=== PATIENT | female | born 1965 | race Caucasian/White ===

== ENCOUNTER 2019-02-10 16:25 | Emergency (ER) | payer MEDICAID, OTHER ==
[~2019-02-10] VITALS: Ht 167.6 cm; Wt 134.7 kg
[2019-02-10 16:54] LABS: Basophils # (auto) 0.1 uL; Basophils % (auto) 0.8 % (0.0-2.0); Eosinophils # (auto) 0.1 uL; Eosinophils % (auto) 1.1 % (0.0-7.0); Hemoglobin 14.4 g/dL (12.2-16.2); Lymphocytes # (auto) 2.1 uL; Lymphocytes % (auto) 22.4 % (10.0-50.0); Mean Corpuscular Hemoglobin 29.5 pg (28.0-32.0); Mean Corpuscular Hgb Conc. 33.5 g/dL (32.0-36.0); Monocytes # (auto) 0.4 uL; Monocytes % (auto) 4.4 % (0.0-12.0); Neutrophils # (auto) 6.7 uL; Neutrophils % (auto) 71.3 % (37.0-80.0); Platelet Count (auto) 297 10^3/uL (140-450); Red Blood Cells 4.89 10^6/uL (4.0-5.20); Red Cell Distribution Width 14.1 % (11.8-14.3); White Blood Cell 9.3 10^3/uL (4.4-10.8)
[2019-02-10 17:05] LABS: Albumin 3.5 g/dL (3.4-5.0); BUN/Creatinine Ratio 13.7; Calcium 8.9 mg/dL (8.5-10.1); Potassium 3.5 mmol/L (3.5-5.1)
[2019-02-10 17:08] LABS: Bilirubin, Total 0.4 mg/dL (0.2-1.0); Total Protein 7.3 g/dL (6.4-8.2)
[2019-02-10] MEDS ORDERED: cloNIDine HCL 0.1 MG TAB PO ONE (17:15)
[2019-02-10 17:57] VITALS: BP 183/81
[2019-02-10] MEDS ORDERED: FUROSEMIDE 40 MG TAB PO ONE (18:30)
[2019-02-10 18:47] LABS: Urine Bacteria NONE SEEN /hpf (None Seen); Urine Blood Negative /uL (Negative); Urine Specific Gravity 1.008 (1.001-1.035); Urine WBC <1 /hpf (0 - 5)
== END 2019-02-10 18:49 | disposition home or self-care (01) ==
LOC: ER 16:30
DX: M25.475 Effusion, left foot (principal); N39.0 Urinary tract infection, site not specified; I11.0 Hypertensive heart disease with heart failure; I50.9 Heart failure, unspecified; Z88.0 Allergy status to penicillin
CPT/HCPCS: 36415; 80053; 81001; 83880; 84484; 85025; 93971

== ENCOUNTER 2024-04-22 18:31 | Emergency (ER) | payer MEDICARE, MEDICAID ==
[~2024-04-22] VITALS: Ht 167.6 cm; Wt 145.5 kg
[2024-04-22 20:19] VITALS: TEMP 98.2; O2SAT 96
[2024-04-22] MEDS: MORPHINE SULFATE INJ 2 MG/ml SYRG IM ONE (20:27)
--- NOTE | 2024-04-22 20:51 | DVH ---
CLINICAL INDICATION: fall/pain TECHNIQUE: 3 radiographic views of the pelvis and left hip were obtained. Comparison: None FINDINGS/IMPRESSION: There is no evidence of acute fracture or dislocation. Mild degenerative changes bilateral hips with moderate to severe degenerative changes of the lower ernst mbar spine. The alignment is anatomical. Phleboliths are noted within the pelvis.
[2024-04-22 20:57] VITALS: BP 127/51; PULSE 65; RESP 18
--- NOTE | 2024-04-22 21:06 | ED.PDOC ---
Back pain HPI HPI Comments This is a 59-year-old female presents to the ED via ambulance chief complaint left hip pain. Patient states on 04/20/2024 she was taken in the trash barrel lost her footing and most of her weight fell onto her left side. Since has been complaining of left groin pain into the hip, denies as achy and sharp in nature 8/10 on pain scale. She states spends half her time in the wheelchair and walking she does note some pain with weight-bearing. She denies numbness, weakness, neck pain, back pain, headache, head trauma CT of the LOC, fever or chills. 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 Family History Family History: Reviewed,noncontributory to illness Social History Smoker: Non-Smoker Alcohol: Denies ETOH Use Drugs: Denies Drug Use Lives In: Home Constitutional: denies: chills, diaphoresis, fatigue, fever, malaise, sweats, weakness, others EENTM: denies: blurred vision, double vision, ear bleeding, ear discharge, ear drainage, ear pain, ear ringing, eye pain, eye redness, hearing loss, mouth pain, mouth swelling, nasal discharge, nose bleeding, nose congestion, nose p ain, photophobia, tearing, throat pain, throat swelling, voice changes, others Respiratory: denies: cough, hemoptysis, orthopnea, SOB at rest, shortness of breath, SOB with excertion, stridor, wheezing, others Cardiovascular: denies: chest pain, dizzy spells, diaphoresis, Dyspnea on exertion, edema, irregular heart beat, left arm pain, lightheadedness, palpitations, PND, syncope, others Gastrointestinal: denies: abdomen distended, abdominal pain, blood streaked bowels, constipated, diarrhea, dysphagia, difficulty swallowing, hematemesis, melena, nausea, poor appetite, poor fluid intake, rectal bleeding, rectal pain, vomiting, others Genitourinary: denies: abnormal vagina bleeding, burning, dyspareunia, dysuria, flank pain, frequency, hematuria, incontinence, pain, , vagina discharge, urgency, others Neurological: denies: dizziness, fainting, headache, left sided numbness, left sided weakness, numbness, paresthesia, pre-existing deficit, right sided numbness, right sided weakness, seizure, speech problems, tingling, tremors, weakness, others Musculoskeletal: reports: others (Left hip pain); denies: back pain, gout, joint pain, joint swelling, muscle pain, muscle stiffness, neck pain Integumetry: denies: bruises, change in color, change in hair/nails, dryness, laceration, lesions, lumps, rash, wounds, others Allergic/Immunocompromised: denies: Difficulty Healing, Frequent Infections, Hives, Itching, others Hematologic/Lymphatic: denies: anemia, blood clots, easy bleeding, easy bruising, swollen glands, others Endocrine: denies: excessive hunger, excessive sweating, excessive thirst, excessive urination, flushing, intolerance to cold, intolerance to heat, unexplained weight gain, unexplained weight loss, others Psychiatric: denies: anxiety, bipolar disorder, depression, hopeless, panic disorder, schizophrenia, sleepless, suicidal, others Physical Exam General Appearance: No Apparent Distress, Normal HEENT: Pharynx Normal Neck: Full Range of Motion, Non-Tender Respiratory: Lungs Clear, No Respiratory Distress, Normal Breath Sounds Cardiovascular: No Edema, No JVD, No Murmur, No Gallop, Normal Peripheral Pulses, Regular Rate/Rhythm Breast Exam: Deferred Gastrointestinal: No Organomegaly, Non Tender, No Pulsatile Mass, Normal Bowel Sounds, Soft Genitalia: Deferred Pelvic: Deferred Rectal: Deferred Extremities: Normal capillary refill, Normal inspection, Normal range of motion, Non-tender, No pedal edema Musculoskeletal : Location: Left Extremity Location: Hip (In his on palpation lateral left hip. Full range of motion with moderate discomfort no noted crepitus. Noted ecchymosis ab rasions lesions or lacerations sensory and motion intact to left leg positive pedal pulse. 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 Was a procedure done?: No Back Pain Differential Dx Differential Diagnosis: Fracture, Musculoskeletal Pain X-Ray, Labs, Meds, VS Vital Signs Date Time Temp Pulse Resp B/P (MAP) Pulse Ox O2 Delivery O2 Flow Rate FiO2 04/22/24 20:57 65 18 127/51 04/22/24 20:27 66 19 128/60 04/22/24 20:19 66 19 96 Room Air 04/22/24 20:19 98.2 66 19 128/60 (82) 96 98.2 04/22/24 18:54 98.0 64 18 133/75 (94) 98 Current Medications Medications (Trade) Dose Ordered Sig/Francisco Route Start Time Stop Time Status Last Admin Morphine Sulfate 1 mg ONCE ONCE IM 04/22/24 19:45 04/22/24 19:46 DC 04/22/24 20:27 X-Ray, Labs, Meds, VS Comment Left hip x-ray negative for acute findings or osseous lesions noted moderate to severe hip arthritis and severe lumbar spine arthritis. Patient reports improvement in pain is requesting discharge at this time. Follow up with PCP in 2-3 days as necessary if symptoms persist consider repeat x-ray or MRI consider physical therapy. Return precautions given. Tylenol or Motrin as needed for the pain per labeled dosing instructions. Patient agrees with discharge plan of care. Time of 1ST Reevaluation: 21:06 Reevaluation 1ST: Improved Patient Education/Counseling: Diagnosis, Treatment, Prognosis, Need For Follow Up Family Education/Counseling: Diagnosis, Treatment, Prognosis, Need For Follow Up Departure 1 Departure Time of Disposition: 21:06 Impression: Primary Impression: Hip pain, left Disposition: 01 HOME / SELF CARE / HOMELESS Condition: Stable Discharged With: Friend Critical Care Note Critical Care Time?: No Stability Stability form required: MEDHAT Pryor Apr 22, 2024 21:06
== END 2024-04-22 21:11 | disposition home or self-care (01) ==
LOC: EDUNIT# 18:31 → ER 18:31 → EDBD 18:31 → ER 21:10
DX: M25.552 Pain in left hip (principal); I10 Essential (primary) hypertension; Z88.0 Allergy status to penicillin; Z98.890 Other specified postprocedural states
CPT/HCPCS: 73502; 96372; 99283; J2270

== ENCOUNTER 2025-01-11 20:41 | Emergency (ER) | payer OTHER, MEDICAID ==
[~2025-01-11] VITALS: Ht 170.2 cm; Wt 136.1 kg
[2025-01-11 23:45] VITALS: BP 111/57; PULSE 84; RESP 20; O2SAT 98
[2025-01-11] MEDS: ACETAMINOPHEN 325 MG TAB PO ONE (23:54)
[2025-01-11] MEDS: TETANUS-DIPTH-ACEL PERTUSSIS 0.5ML SYR Tdap IM ONE (23:55)
--- NOTE | 2025-01-12 | ED.PDOC ---
History of Present Illness(SKN HPI Comments 59 year old female presents to ER for wound check. Patient states she has been experiencing pain, redness and swelling to left lower leg x 3 days with associated chills x 1 day s/p being bitten by her cat 3 days ago and presents to ER for wound check. Denies use of medications for current symptoms and states she is unsure when her last tetanus shot was. 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 Family History Family History: Unknown Social History Smoker: Non-Smoker Alcohol: Denies ETOH Use Drugs: Denies Drug Use Lives In: Home Constitutional: denies: chills, diaphoresis, fatigue, fever, malaise, sweats, weakness, others EENTM: denies: blurred vision, double vision, ear bleeding, ear discharge, ear drainage, ear pain, ear ringing, eye pain, eye redness, hearing loss, mouth pain, mouth swelling, nasal discharge, nose bleeding, nose congestion, nose pain, photophobia, tearing, throat pain, throat swelling, voice changes, others Respiratory: denies: cough, hemoptysis, orthopnea, SOB at rest, shortness of breath, SOB with excertion, stridor, wheezing, others Cardiovascular: denies: chest pain, dizzy spells, diaphoresis, Dyspnea on exertion, edema, irregular heart beat, left arm pain, lightheadedness, palpitations, PND, syncope, others Gastrointestinal: denies: abdomen distended, abdominal pain, blood streaked bowels, constipated, diarrhea, dysphagia, difficulty swallowing, hematemesis, melena, nausea, poor appetite, poor fluid intake, rectal bleeding, rectal pain, vomiting, others Genitourinary: denies: abnormal vagina bleeding, burning, dyspareunia, dysuria, flank pain, frequency, hematuria, incontinence, pain, , vagina discharge, urgency, others Neurological: denies: dizziness, fainting, headache, left sided numbness, left sided weakness, numbness, paresthesia, pre-existing deficit, right sided numbness, right sided weakness, seizure, speech problems, tingling, tremors, weakness, others Musculoskeletal: denies: back pain, gout, joint pain, joint swelling, muscle pain, muscle stiffness, neck pain, others Integumetry: reports: others (As stated in HPI) Allergic/Immunocompromised: denies: Difficulty Healing, Frequent Infections, Hives, Itching, others Hematologic/Lymphatic: denies: anemia, blood clots, easy bleeding, easy bruising, swollen glands, others Endocrine: denies: excessive hunger, excessive sweating, excessive thirst, excessive urination, flushing, intolerance to cold, intolerance to heat, unexplained weight gain, unexplained weight loss, others Psychiatric: denies: anxiety, bipolar disorder, depression, hopeless, panic disorder, schizophrenia, sleepless, suicidal, others Physical Exam General Appearance: No Apparent Distress HEENT: PERRL/EOMI Neck: Full Range of Motion, Non-Tender, Normal Respiratory: Chest Non-Tender, Lungs Clear, No Accessory Muscle Use, No Respiratory Distress, Normal Breath Sounds Cardiovascular: No Murmur, No Gallop, Regular Rate/Rhythm Breast Exam: Deferred Gastrointestinal: NOT DONE Genitalia: Deferred Pelvic: Deferred Rectal: Deferred Extremities: No calf tenderness, Normal capillary refill, Normal range of motion Neurologic: Alert, resident care director II-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 Was a procedure done?: No Sedation Sedation?: No Images 1 - Moderate erythema, increased warmth, +induration and moderate swelling noted to left lower leg surrounding 2 small puncture wounds consistent with cat bite. No red streaking, drainage or FB noted. Pulses intact Differential Diagnosis (INTG) Differential Diagnosis: Abrasion Differential Diagnosis: Abscess Differential Diagnosis: Neurovascular Injury Differential Diagnosis: Retained Foreign Body, Other (Lymphangitis, sepsis, cat scratch disease) X-Ray, Labs, Meds, VS Vital Signs Date Time Temp Pulse Resp B/P (MAP) Pulse Ox O2 Delivery O2 Flow Rate FiO2 01/12/25 00:40 99.2 01/11/25 23:54 100.1 01/11/25 23:45 100.1 84 20 111/57 (75) 98 100.1 01/11/25 23:40 Room Air* 0 21 01/11/25 20:48 91 91 153/97 95 Current Medications Medications (Trade) Dose Ordered Sig/Francisco Route Start Time Stop Time Status Last Admin Ceftriaxone Sodium 50 ml @ 100 mls/hr ONCE ONCE IV 01/11/25 23:45 01/12/25 00:14 DC 01/12/25 00:09 Metronidazole 100 ml @ 100 mls/hr ONCE ONCE IV 01/11/25 23:45 01/12/25 00:44 DC 01/12/25 00:24 Diphtheria/ Tetanus/Acell Pertussis (Boostrix T-Dap) 0.5 ml ONCE ONCE IM 01/11/25 23:45 01/11/25 23:46 DC 01/11/25 23:55 Acetaminophen (Tylenol Tablet) 650 mg ONCE ONCE PO 01/11/25 23:45 01/11/25 23:46 DC 01/11/25 23:54 Hep-Lock IV ordered Metronidazole 500 mg IV ordered Rocephin 1 g IV ordered Tylenol 650 mg p.o. ordered Patient refused further workup in ER and admission to this hospital and states she would like to sign out against medical advice. Several attempts were made to convince patient to stay for further evaluation/treatment and need for admission to the hospital for cellulitis of left lower leg without success Risks of signing out AMA were discussed with patient in full details. Including risk of partial/permanent disability, risk of limb loss, risk of sepsis and risk of discussed. Patient alert and oriented x4 verbalized full understanding of signing out AMA Patient signed out of ER against medical advice Time of 1ST Reevaluation: 23:54 Reevaluation 1ST: N/A Patient Education/Counseling: Diagnosis, Treatment, Prognosis, Need For Follow Up Family Education/Counseling: No Family Present SEPSIS Sepsis Screen Date sepsis recognized/suspect: Jan 11, 2025 Time Sepsis recognized/suspect: 2051 Recent Procedure: No On Antibiotic Therapy: No Respiratory Rate >20: No Heart Rate >90: Yes Temp<36 C (96.8 F) or >38.3 C: No SBP <90 or MAP <65 mmHG: No New Acute Mental Status Change: No Is the patient on CPAP, BIPAP,: No Physician Orders Heplock Iv (9/17/25 ) Vital Signs Date Time Temp Pulse Resp B/P (MAP) Pulse Ox O2 Delivery O2 Flow Rate FiO2 01/12/25 00:40 99.2 01/11/25 23:54 100.1 01/11/25 23:45 100.1 84 20 111/57 (75) 98 100.1 01/11/25 23:40 Room Air* 0 21 01/11/25 20:48 91 91 153/97 95 Medications Medications Dose Ordered Sig/Francisco Route Start Time Stop Time Status Last Admin Dose Admin Acetaminophen 650 mg ONCE ONCE PO 01/11/25 23:45 01/11/25 23:46 DC 01/11/25 23:54 Ceftriaxone Sodium 50 ml @ 100 mls/hr ONCE ONCE IV 01/11/25 23:45 01/12/25 00:14 DC 01/12/25 00:09 Diphtheria/ Tetanus/Acell Pertussis 0.5 ml ONCE ONCE IM 01/11/25 23:45 01/11/25 23:46 DC 01/11/25 23:55 Metronidazole 100 ml @ 100 mls/hr ONCE ONCE IV 01/11/25 23:45 01/12/25 00:44 DC 01/12/25 00:24 Departure 1 Departure Time of Disposition: 01:15 Impression: Primary Impression: Cellulitis of left lower extremity Additional Impression: Cat bite of left lower leg with infection Qualified Codes: S81.852A - Open bite, left lower leg, initial encounter; L08.9 - Local infection of the skin and subcutaneous tissue, unspecified; W55.01XA - Bitten by cat, initial encounter Disposition: LEFT AGAINST MEDICAL ADVICE Condition: Serious Critical Care Note Critical Care Time?: No Stability Stability form required: No Heart Score Heart Score: Heart Score Response (Comments) Value History N/A 0 EKG N/A 0 Age N/A 0 Risk Factors N/A 0 Troponin N/A 0 Total 0 CHRIS MENDEZ Jan 12, 2025 00:00
[2025-01-12 00:40] VITALS: TEMP 99.2
[2025-01-21] MEDS ORDERED: LISI20TA56 PO (04:53)
== END 2025-01-12 | disposition left against medical advice (07) ==
LOC: ER 20:41
DX: S81.852A Open bite, left lower leg, initial encounter (principal); L03.116 Cellulitis of left lower limb; I10 Essential (primary) hypertension; Z85.850 Personal history of malignant neoplasm of thyroid; Z88.0 Allergy status to penicillin; Z90.89 Acquired absence of other organs; W55.01XA Bitten by cat, initial encounter; Y93.89 Activity, other specified; Y92.89 Other specified places as the place of occurrence of the external cause; Y99.8 Other external cause status
CPT/HCPCS: 90471; 90715; 96365; 96368; 99284; J0696; J3490

== ENCOUNTER 2025-01-12 13:16 | Emergency (ER) | payer MEDICAID, OTHER ==
[~2025-01-12] VITALS: Ht 170.2 cm; Wt 136.3 kg
[2025-01-12 13:19] VITALS: BP 113/48; PULSE 84; RESP 18; TEMP 99.5; O2SAT 93
--- NOTE | 2025-01-12 13:48 | ED.PDOC ---
History of Present Illness(SKN HPI Comments This is a 60 year old female presenting to the ED with chief complaint of cellulitis. Patient reports that she was bit by a cat she was feeding outside on Thursday on her left leg, but she started to develop redness, swelling, and warmth surrounding the bite deon on her leg recently. Patient relays that she was seen in [facility] yesterday for the same complaint and was going to be admitted, however, she eloped due to not wanting to be admitted. Patient notes she received one dose of Rocephin yesterday. Patient denies any numbness, fever, chills, drainage, or bleeding. Chief Complaint: Cellulitis Time Seen by MD: 13:44 Primary Care Provider: DR VERONICA History of Present Illness: Nurses Notes, Medications, Allergies Allergies: Coded Allergies: Penicillins (Verified Allergy, Unknown, 02/10/19) Information Source: Patient Mode of Arrival: Wheelchair Severity: Severe Timing: Days Duration: Since onset Prehospital treatment: None Location: Leg Mechanism: Cat Occurence: Outdoors Object: None Condition of Object: None Retained Foreign Body: No Wound Type: Puncture Immunization Status of Animal: Unknown Tetanus: Unknown History of: None Associated Signs and Symptoms: Redness, Swelling Past Medical History PAST MEDICAL HISTORY: Cancer, HTN Surgical History: 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 Family History Family History: Unknown Social History Smoker: Non-Smoker Alcohol: Denies ETOH Use Drugs: Denies Drug Use Lives In: Home Constitutional: denies: chills, diaphoresis, fatigue, fever, malaise, sweats, weakness, others EENTM: denies: blurred vision, double vision, ear bleeding, ear discharge, ear drainage, ear pain, ear ringing, eye pain, eye redness, hearing loss, mouth pain, mouth swelling, nasal discharge, nose bleeding, nose congestion, nose pain, photophobia, tearing, throat pain, throat swelling, voice changes, others Respiratory: denies: cough, hemoptysis, orthopnea, SOB at rest, shortness of breath, SOB with excertion, stridor, wheezing, others Cardiovascular: reports: edema; denies: chest pain, dizzy spells, diaphoresis, Dyspnea on exertion, irregular heart beat, left arm pain, lightheadedness, palpitations, PND, syncope, others Gastrointestinal: denies: abdomen distended, abdominal pain, blood streaked bowels, constipated, diarrhea, dysphagia, difficulty swallowing, hematemesis, melena, nausea, poor appetite, poor fluid intake, rectal bleeding, rectal pain, vomiting, others Genitourinary: denies: abnormal vagina bleeding, burning, dyspareunia, dysuria, flank pain, frequency, hematuria, incontinence, pain, , vagina discharge, urgency, others Neurological: denies: dizziness, fainting, headache, left sided numbness, left sided weakness, numbness, paresthesia, pre-existing deficit, right sided numbness, right sided weakness, seizure, speech problems, tingling, tremors, weakness, others Musculoskeletal: denies: back pain, gout, joint pain, joint swelling, muscle pain, muscle stiffness, neck pain, others Integumetry: reports: wounds (Left leg wound); denies: bruises, change in color, change in hair/nails, dryness, laceration, lesions, lumps, rash, others Allergic/Immunocompromised: denies: Difficulty Healing, Frequent Infections, Hives, Itching, others Hematologic/Lymphatic: denies: anemia, blood clots, easy bleeding, easy br uising, swollen glands, others Endocrine: denies: excessive hunger, excessive sweating, excessive thirst, excessive urination, flushing, intolerance to cold, intolerance to heat, unexplained weight gain, unexplained weight loss, others Psychiatric: denies: anxiety, bipolar disorder, depression, hopeless, panic disorder, schizophrenia, sleepless, suicidal, others All Other Systems: Reviewed and Negative Physical Exam General Appearance: No Apparent Distress, Normal HEENT: Normal ENT Inspection, Pharynx Normal, TMs Normal Neck: Full Range of Motion, Non-Tender, Normal, Normal Inspection Respiratory: Chest Non-Tender, Lungs Clear, No Accessory Muscle Use, No Respiratory Distress, Normal Breath Sounds Cardiovascular: No Edema, No JVD, No Murmur, No Gallop, Normal Peripheral Pulses, Regular Rate/Rhythm Breast Exam: Deferred Gastrointestinal: No Organomegaly, Non Tender, No Pulsatile Mass, Normal Bowel Sounds, Soft Genitalia: Deferred Pelvic: Deferred Rectal: Deferred Extremities: No calf tenderness, None (left leg warmth, erythma, tenderness and small ulceration.), Normal capillary refill, Normal inspection, Normal range of motion, Non-tender, No pedal edema, Other (2+ pitting edema to bilateral lower extremities. 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 Was a procedure done?: No Differential Diagnosis (INTG) Differential Diagnosis: Cellulitis X-Ray, Labs, Meds, VS Vital Signs Date Time Temp Pulse Resp B/P (MAP) Pulse Ox O2 Delivery O2 Flow Rate FiO2 01/12/25 13:19 99.5 84 18 113/48 93 99.5 Lab Test 01/12/25 16:09 01/12/25 14:13 Range/Units Lactic Acid Level Pending 2.6 *H 0.4-2.0 mmol/L White Blood Count 32.0 *H 4.4-10.8 10^3/uL Red Blood Count 4.25 4.0-5.20 10^6/uL Hemoglobin 11.7 L 12.2-16.2 g/dL Hematocrit 34.7 L 36.0-46.0 % Mean Corpuscular Volume 81.7 80.0-100.0 fL Mean Corpuscular Hemoglobin 27.5 L 28.0-32.0 pg Mean Corpuscular Hemoglobin Concent 33.7 32.0-36.0 g/dL Red Cell Distribution Width 14.7 H 11.8-14.3 % Platelet Count 286 140-450 10^3/uL Mean Platelet Volume 7.7 6.9-10.8 fL Neutrophils (%) (Auto) 37.0-80.0 % Lymphocytes (%) (Auto) 10.0-50.0 % Monocytes (%) (Auto) 0.0-12.0 % Basophils (%) (Auto) 0.0-2.0 % Neutrophils # (Auto) 1.6-8.6 10 ^3/uL Lymphocytes # (Auto) 0.4-5.4 10 ^3/uL Monocytes # (Auto) 0-1.3 10 ^3/uL Differential Total Cells Counted 100.0 100 Neutrophils % (Manual) 90 H 37.0-80.0 Band Neutrophils % (Manual) 3 Lymphocytes % (Manual) 3 L 10.0-50.0 Monocytes % (Manual) 4 0-12 Eosinophils % (Manual) 0 0-7 Basophils % (Manual) 0 0.0-2.0 Metamyelocytes % (manual) 0 Myelocytes % (Manual) 0 Promyelocytes % (Manual) 0 Blast Cells % (Manual) 0 Reactive Lymphocytes 0 Platelet Estimate Adequate Red Blood Cell Morphology Normal Sodium Level 127 L 136-145 mmol/L Potassium Level 3.7 3.5-5.1 mmol/L Chloride Level 92 L 98-107 mmol/L Carbon Dioxide Level 21 20-31 mmol/L Anion Gap 14 5-15 Blood Urea Nitrogen 18 9-23 mg/dL Creatinine 1.53 H 0.550-1.02 mg/dL Glomerular Filtration Rate Calc 38 >90 mL/min BUN/Creatinine Ratio 11.8 10.0-20.0 Serum Glucose 97 74-106 mg/dL Calcium Level 8.6 L 8.7-10.4 mg/dL Current Medications Medications (Trade) Dose Ordered Sig/Francisco Route Start Time Stop Time Status Last Admin Vancomycin HCl 250 ml @ 250 mls/hr ONCE ONCE IV 01/12/25 13:45 01/12/25 14:44 DC 01/12/25 14:47 Sodium Chloride 1,000 ml @ 1,000 mls/hr Q1H ONCE IV 01/12/25 14:45 01/12/25 15:44 DC 01/12/25 15:58 Time of 1ST Reevaluation: 14:41 Reevaluation 1ST: Unchanged Patient Education/Counseling: Diagnosis, Treatment Family Education/Counseling: No Family Present SEPSIS Sepsis Screen Date sepsis recognized/suspect: Jan 12, 2025 Time Sepsis recognized/suspect: 1322 Recent Procedure: No On Antibiotic Therapy: No Respiratory Rate >20: No Heart Rate >90: No Temp<36 C (96.8 F) or >38.3 C: No SBP <90 or MAP <65 mmHG: No New Acute Mental Status Change: No Is the patient on CPAP, BIPAP,: No Physician Orders Urinalysis (01/12/25 13:41) Blood Culture (01/12/25 13:41) Vital Signs Date Time Temp Pulse Resp B/P (MAP) Pulse Ox O2 Delivery O2 Flow Rate FiO2 01/12/25 13:19 99.5 84 18 113/48 93 99.5 Laboratory Tests Test 01/12/25 14:13 01/12/25 16:09 Lactic Acid Level 2.6 mmol/L (0.4-2.0) *H Pending White Blood Count 32.0 10^3/uL (4.4-10.8) *H Medications Medications Dose Ordered Sig/Francisco Route Start Time Stop Time Status Last Admin Dose Admin Sodium Chloride 1,000 ml @ 1,000 mls/hr Q1H ONCE IV 01/12/25 14:45 01/12/25 15:44 DC 01/12/25 15:58 Vancomycin HCl 250 ml @ 250 mls/hr ONCE ONCE IV 01/12/25 13:45 01/12/25 14:44 DC 01/12/25 14:47 Departure 1 Departure Time of Disposition: 16:59 (Patient with a worsening cellulitis after a cat bite. Empirically cover patient with antibiotics and we will admit patient for further workup) Impression: Primary Impression: Cat bite of left lower leg with infection Qualified Codes: S81.852A - Open bite, left lower leg, initial encounter; L08.9 - Local infection of the skin and subcutaneous tissue, unspecified; W55.01XA - Bitten by cat, initial encounter Additional Impression: Cellulitis of left lower extremity Disposition: ADMITTED INPATIENT Admit to: Med Surg Condition: Serious Critical Care Note Critical Care Time?: No Stability Stability form required: No Heart Score Heart Score: Heart Score Response (Comments) Value History N/A 0 EKG N/A 0 Age N/A 0 Risk Factors N/A 0 Troponin N/A 0 Total 0 I personally scribed for TOYIN MARTINEZ MD ([email or web address]) on 01/12/25 at 13:48. Electronically submitted by Jcarlos Brown ([email or web address]). TOYIN MARTINEZ MD Jan 12, 2025 13:48
[2025-01-12 14:23] LABS: Hematocrit 34.7 % (36.0-46.0); Hemoglobin 11.7 g/dL (12.2-16.2); Mean Corpuscular Hemoglobin 27.5 pg (28.0-32.0); Mean Corpuscular Volume 81.7 fL (80.0-100.0)
[2025-01-12 14:31] LABS: Potassium 3.7 mmol/L (3.5-5.1)
[2025-01-12 14:32] LABS: Anion Gap 14 (5-15); Carbon Dioxide 21 mmol/L (20-31); Chloride 92 mmol/L (98-107); Sodium 127 mmol/L (136-145)
[2025-01-12 14:35] LABS: Calcium 8.6 mg/dL (8.7-10.4)
[2025-01-12 14:37] LABS: BUN/Creatinine Ratio 11.8 (10.0-20.0); Blood Urea Nitrogen 18 mg/dL (9-23); Glucose 97 mg/dL (74-106)
[2025-01-12 14:43] LABS: Lactic Acid w/Reflex 2.6 mmol/L (0.4-2.0)
[2025-01-12] MEDS: VANCOMYCIN 1GM/250ML KIT 250 ML IV ONE (14:47)
[2025-01-12] MEDS: SODIUM CHLORIDE 0.9% 1,000 ML IV ONE (15:58)
[2025-01-12 16:03] LABS: Total Cells Counted 100.0 (100)
[2025-01-12 16:04] LABS: RBC Morphology Normal
[2025-01-12] MEDS: AMPICILLIN & SULBACTAM SODIUM 3 GM in SODIUM CHL 0.9% 100 ML IV SCH (19:37)
[2025-01-12] MEDS: diphenhdrAMINE HCL 50 MG/1 ML VL IV ONE (19:37)
[2025-01-21] MEDS ORDERED: LISI20TA56 PO (04:53)
== END 2025-01-12 19:56 | disposition home or self-care (01) ==
LOC: ER 13:20
DX: S81.852A Open bite, left lower leg, initial encounter (principal); L03.116 Cellulitis of left lower limb; I10 Essential (primary) hypertension; Z90.89 Acquired absence of other organs; Z88.0 Allergy status to penicillin; W55.01XA Bitten by cat, initial encounter; Y93.89 Activity, other specified; Y92.89 Other specified places as the place of occurrence of the external cause; Y99.8 Other external cause status
CPT/HCPCS: 36415; 80048; 83605; 85007; 85027; 87040; 96361; 96365; 96367; 96375; 99284; J1200; J3373; J7030

== ENCOUNTER 2025-01-20 18:42 | Inpatient (IN) | payer OTHER ==
[~2025-01-20] VITALS: Ht 167.6 cm; Wt 141.0 kg
--- NOTE | 2025-01-20 20:00 | DVH ---
CLINICAL HISTORY: LE swelling warmth redness TECHNIQUE: Color and duplex doppler imaging of the bilateral lower extremity veins was performed. Ves susan compression if possible was also performed. WID: COMPARISON: None FINDINGS: Right and left external iliac veins: Normal flow and phasicity. Right Lower Extremity: Right common femoral vein: Normal compressibility and flow. Right femoral vein: Normal compressibility and flow. Right popliteal vein: Normal compressibility and flow. Right posterior tibial vein is patent Left Lower Extremity: Left common femoral vein: Normal compressibility and flow. Left femoral vein: Normal compressibility and flow. Left popliteal vein: Normal compressibility and flow. The left calf veins are not visualized. Mild subcutaneous edema in the left calf. Enlarged reactive appearing left inguinal lymph node measuring 5 x 0.9 x 2.5 cm. IMPRESSION: 1. NO SONOGRAPHIC EVIDENCE FOR DEEP VENOUS THROMBOSIS IN THE BILATERAL LOWER EXTREMITY VEINS. The lef t posterior tibial vein is not visualized. 2. Mild subcutaneous edema in the left calf.
--- NOTE | 2025-01-20 20:57 | ED.PDOC ---
Musculoskeletal HPI Comments 60-year-old female came to ER for left lower extremity swelling. Patient was seen here last January 11 for cat bite on the left lower leg, patient was given shot of Rocephin and metronidazole, and was advised admission then but signed AMA. Patient came back on January 12 for similar complaint, was again advised admission but was never admitted. Patient coming in for worsening of left lower extremity swelling, with discharge and drainage. REVIEW OF SYSTEMS: General: No fever, no chills, or fatigue HEENT: No sore throat, no earache, no congestion, no neck pain. Cardiac: No chest pain. No palpitations. Lungs: No shortness of breath, no cough. GI: No nausea, no vomiting, no diarrhea, no constipation, no abdominal pain : No dysuria, frequency, or urgency. No hematuria. Musculoskeletal: No joint pain , (+) left lower extremity swelling, (+) extremity edema. Skin: No rash, no itching. Neuro: No headache, no dizziness, no weakness EXAM: General: Awake, alert and oriented. No acute distress. Skin: Skin in warm, dry and intact. Appropriate color for ethnicity. HEENT: The head is normocephalic and atraumatic. Conjunctivae are clear without exudates or hemorrhage. Sclera is non-icteric. EOM are intact. No signs of nystagmus. Eyelids are normal in appearance without swelling or lesions. Oral mucosa is pink and moist Neck: The neck is supple with normal range of motion. No JVD. Cardiac: Heart rate and rhythm are normal. No murmurs, gallops, or rubs are auscultated. Respiratory: No signs of respiratory distress. Lung sounds are clear in all lobes bilaterally without rales, rhonchi, or wheezes. Abdominal: Abdomen is soft, non-tender without distention. Bowel sounds are present and normoactive in all four quadrants. Extremities: Left lower extremity with a extensive erythema, warmth, tenderness. Neurological: The patient is awake, alert and oriented to person, place, and time with normal speech. Speech is clear. There is no facial asymmetry. Psychiatric: Appropriate mood and affect. 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 Allergies: Coded Allergies: Penicillins (Verified Allergy, Unknown, 02/10/19) Home Meds Reported Medications Potassium Chloride (POTASSIUM CHLORIDE CR) 10 Meq Tb, 20 MEQ PO DAILY, TAB 01/21/25 Furosemide (Furosemide) 20 Mg Tab, 20 MG PO DAILY for 30 Days, MG 01/21/25 Duloxetine HCl (Duloxetine HCl) 60 Mg Cap, 60 MG PO DAILY, CAP 01/21/25 Pregabalin (Lyrica) 200 Mg Cap, 2 CAP PO DAILY, #60 CAP 01/21/25 Lisinopril (Lisinopril) 20 Mg Tab, 20 MG PO DAILY for 30 Days, MG 01/21/25 Lisinopril (Lisinopril) 20 Mg Tab, 20 MG PO DAILY for 30 Days, MG 01/21/25 Verapamil Hcl (Verapamil Hcl Er) 180 Mg Tab, 180 MG PO, TAB 01/21/25 Metoprolol Succinate (Metoprolol Succinate Er) 50 Mg Tab, 50 MG PO DAILY for 30 Days, MG 01/21/25 Liothyronine Sodium (Liothyronine Sodium) 25 Mcg Tab, 25 MCG PO DAILY, TAB 01/21/25 Levothyroxine Sodium (Levothyroxine Sodium) 100 Mcg Tab, 100 MCG PO QAM for 30 Days, MCG 01/21/25 Information Source: Patient Mode of Arrival: Ambulatory Location: Left Extremity Location: Leg Timing: Hours Past Medical History PAST MEDICAL HISTORY: Cancer, HTN, Thyroid 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 Was a procedure done?: No Differential Diagnosis EXT Differential Diagnosis: Cellulitis, CHF, Deep Vein Thrombosis, Compartment Syndrome, Laceration, Septic, Other X-Ray, Labs, Meds, VS Vital Signs Date Time Temp Pulse Resp B/P (MAP) Pulse Ox O2 Delivery O2 Flow Rate FiO2 01/20/25 21:16 97.0 79 18 128/64 (85) 93 97.0 01/20/25 18:43 98.0 84 18 122/74 94 98.0 Lab Test 01/20/25 20:58 Range/Units White Blood Count 11.0 H 4.4-10.8 10^3/uL Red Blood Count 4.05 4.0-5.20 10^6/uL Hemoglobin 11.5 L 12.2-16.2 g/dL Hematocrit 33.3 L 36.0-46.0 % Mean Corpuscular Volume 82.2 80.0-100.0 fL Mean Corpuscular Hemoglobin 28.3 28.0-32.0 pg Mean Corpuscular Hemoglobin Concent 34.5 32.0-36.0 g/dL Red Cell Distribution Width 15.0 H 11.8-14.3 % Platelet Count 496 H 140-450 10^3/uL Mean Platelet Volume 8.0 6.9-10.8 fL Neutrophils (%) (Auto) 81.6 H 37.0-80.0 % Lymphocytes (%) (Auto) 11.2 10.0-50.0 % Monocytes (%) (Auto) 6.1 0.0-12.0 % Eosinophils (%) (Auto) 0.5 0.0-7.0 % Basophils (%) (Auto) 0.6 0.0-2.0 % Neutrophils # (Auto) 9.0 H 1.6-8.6 10 ^3/uL Lymphocytes # (Auto) 1.2 0.4-5.4 10 ^3/uL Monocytes # (Auto) 0.7 0-1.3 10 ^3/uL Eosinophils # (Auto) 0.1 0-0.8 10 ^3/uL Basophils # (Auto) 0.1 0-0.2 10 ^3/uL Nucleated Red Blood Cells 0.0 % Erythrocyte Sedimentation Rate 50 H 0-20 mm/hr Sodium Level 133 L 136-145 mmol/L Potassium Level 4.6 3.5-5.1 mmol/L Chloride Level 98 98-107 mmol/L Carbon Dioxide Level 26 20-31 mmol/L Anion Gap 9 5-15 Blood Urea Nitrogen 19 9-23 mg/dL Creatinine 1.23 H 0.550-1.02 mg/dL Glomerular Filtration Rate Calc 50 >90 mL/min BUN/Creatinine Ratio 15.4 10.0-20.0 Serum Glucose 99 74-106 mg/dL Calcium Level 9.1 8.7-10.4 mg/dL C-Reactive Protein High Sensitivity 7.77 H <1.0 mg/dL B-Type Natriuretic Peptide 132.76 0-100 pg/mL Microbiology Date/Time Source Procedure Growth Status 01/20/25 20:58 Blood Blood Culture - Preliminary NO GROWTH AFTER 24 HOURS OF INCUBATION. Resulted 01/20/25 20:47 Blood Blood Culture - Preliminary NO GROWTH AFTER 24 HOURS OF INCUBATION. Resulted Time of 1ST Reevaluation: 20:53 Reevaluation 1ST: Unchanged Patient Education/Counseling: Need For Follow Up Family Education/Counseling: No Family Present Departure 1 Departure Time of Disposition: 22:45 Impression: Primary Impression: Cellulitis of left lower extremity Disposition: ADMITTED INPATIENT Condition: Stable Comments 60-year-old female with cellulitis of left lower extremity Antibiotics initiated in the ED Patient admitted to hospitalist service for further treatment, evaluation and monitoring. Critical Care Note Critical Care Time?: No Stability Stability form required: No I personally scribed for WAYNE SANON MD ([email or web address]) on 01/20/25 at 20:57. Electronically submitted by Power [employer] ([email or web address]). WAYNE SANON MD Jan 20, 2025 20:57
[2025-01-20 21:21] LABS: Hematocrit 33.3 % (36.0-46.0); Hemoglobin 11.5 g/dL (12.2-16.2); Mean Corpuscular Hemoglobin 28.3 pg (28.0-32.0); Mean Corpuscular Volume 82.2 fL (80.0-100.0); Nucleated Red Blood Cells % 0.0 %
[2025-01-20 21:32] LABS: Potassium 4.6 mmol/L (3.5-5.1)
[2025-01-20 21:33] LABS: Anion Gap 9 (5-15); Carbon Dioxide 26 mmol/L (20-31)
[2025-01-20 21:34] LABS: Calcium 9.1 mg/dL (8.7-10.4)
[2025-01-20 21:39] LABS: BUN/Creatinine Ratio 15.4 (10.0-20.0); Blood Urea Nitrogen 19 mg/dL (9-23); Glucose 99 mg/dL (74-106)
[2025-01-20 21:43] LABS: Chloride 98 mmol/L (98-107); Sodium 133 mmol/L (136-145)
[2025-01-20] MEDS: VANCOMYCIN 1GM/250ML KIT 250 ML IV ONE (22:15)
[2025-01-20] MEDS ORDERED: DOCUSATE SOD 100 MG CAP PO PRN (23:45)
[2025-01-20] MEDS ORDERED: ACETAMINOPHEN 325 MG TAB PO PRN (23:45)
[2025-01-20] MEDS ORDERED: ONDANSETRON HCL 4 MG/2 ML VIAL IV PRN (23:45)
[2025-01-20] MEDS ORDERED: MORPHINE SULFATE INJ 2 MG/ml SYRG IV PRN ×2 (23:45)
[2025-01-20] MEDS ORDERED: NITROGLYCERIN 0.4 MG SL TAB SL PRN (23:45)
[2025-01-21] VITALS (12 sets, daily range): BP systolic 118–149; BP diastolic 59–89; PULSE 69–109; RESP 16–22; TEMP 96.6–98.1; O2SAT 93–100
[2025-01-21] MEDS ORDERED: VANCOMYCIN PER PHARMACY 0 MG IV SCH
[2025-01-21] MEDS: IPRATROPIUM BROM 0.5 MG/2.5ML INH SOL NEB PRN (00:16)
[2025-01-21] MEDS: SODIUM CHLORIDE 0.9% 1,000 ML IV SCH (00:16)
[2025-01-21] MEDS: ALBUTEROL SULF 2.5 MG/0.5ML(0.5%) NEB SOLN NEB PRN (00:17)
--- NOTE | 2025-01-21 00:26 | DVH ---
INDICATION: cellulitis with pain and swelling r/o abscess COMPARISON: None TECHNIQUE: CT of the left lower extremity was performed without contrast. Volume transverse images we re obtained and reconstructed in multiple planes using bone and soft tissue algorithms. Radiation Dose Information: CT Dose: CTDI volume is 9.95 mGy. Dose-length product is 547.63 mGy*cm. FINDINGS: Diffuse soft tissue edema throughout the left mccain, ankle, and foot. No discrete focal organized flui d collection No fracture or alignment. No erosive bone changes. IMPRESSION: Severe diffuse soft tissue edema below the knee. No focal fluid collections or erosive bone changes. All CT scans at this medical facility are performed using dose modulation techniques as appropriate t o a performed exam including the following: Automated exposure control was utilized; Adjustment of th e MA And/or KV according to patient size; And use of iterative reconstruction technique.
--- NOTE | 2025-01-21 02:20 | DVHHP2 ---
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 Patient states initial cat bite occurred about a month ago. She went to the emergency department 2 weeks later was treated with antibiotic injection. Also received tetanus vaccine at that point. Emergency department recommended inpatient admission however the patient decided to leave against medical advice at that time. At this point returns because redness and swelling has spread all the way up [id number]. Also endorses she is having difficulty walking with it. Also noticing skin peeling off the infected area on her leg. During the emergency department evaluation BMP Na 133, K4.6, BUN 19, creatinine 1.23, C-reactive protein 7.77. CBC: W11.0, H&H 11.5/33.3, PLT 496, ESR 50. Vascular ultrasound negative for DVT of the left lower extremity. At this time there are no complaints of fevers, chills, dizziness, syncope, shortness of breath, chest pain, palpitations, nausea, vomiting. Cardiovascular: HTN Pulmonary: COPD Endocrine: Hypothyroidism Smoke: No ALCOHOL: none Drugs: None Lives: with Family Review of Systems Constitutional: No: Fever, Chills, Sweats, Weakness, Malaise, Other Eyes: No: Pain, Vision change, Conjunctivae inflammation, Eyelid inflammation, Other, Redness ENT: No: Ear pain, Ear discharge, Nose pain, Nose discharge, Nose congestion, Mouth pain, Mouth swelling, Throat pain, Throat swelling, Other Respiratory: No: Cough, Dry, Shortness of breath, SOB with excertion, Wheezing, Hemoptysis, Pleuritic Pain, Sputum, Wheezing, Other Cardiovascular: No: Chest Pain, Palpitations, Orthopnea, Paroxysmal Noc. Dyspnea, Edema, Lt Headedness, Other Gastrointestinal: No: Nausea, Vomiting, Abdominal Pain, Diarrhea, Constipation, Melena, Hematochezia, Other Genitourinary: No Dysuria, No Frequency, No Incontinence, No Hematuria, No Retention, No Other Musculoskeletal: leg pain Skin: Rash, Lesions, Other Neurological: No: Weakness, Numbness, Incoordination, Change in speech, Confusion, Seizures, Other Allergies: Coded Allergies: Penicillins (Verified Allergy, Unknown, 02/10/19) Medications Current Medications Medications Dose Ordered Sig/Francisco Route Start Time Stop Time Status Last Admin Dose Admin Sodium Chloride 1,000 ml @ 75 mls/hr [id number] IV 01/20/25 23:45 01/21/25 13:04 Docusate Sodium 100 mg BIDPRN PRN PO 01/20/25 23:45 Acetaminophen 650 mg Q6HP PRN PO 01/20/25 23:45 Acetaminophen/ Hydrocodone Bitart 1 tab Q4HP PRN PO 01/20/25 23:45 Ondansetron HCl 4 mg Q4HP PRN IV 01/20/25 23:45 Morphine Sulfate 2 mg Q4HPRN PRN IV 01/20/25 23:45 Enoxaparin Sodium 40 mg DAILY SC 01/21/25 10:00 Nitroglycerin 0.4 mg Q5MINP PRN SL 01/20/25 23:45 Morphine Sulfate 2 mg Q30M PRN IV 01/20/25 23:45 Ceftriaxone Sodium 50 ml @ 100 mls/hr DAILY IV 01/21/25 10:00 Albuterol 2.5 mg Q4HPRN PRN NEB 01/20/25 23:45 01/21/25 00:17 2.5 MG Ipratropium Union 0.5 mg Q4HPRN PRN NEB 01/20/25 23:45 01/21/25 00:16 0.5 MG Vancomycin HCl 0 ml @ 0 mls/hr UD IV 01/21/25 00:00 UNV Clindamycin Phosphate 50 ml @ 50 mls/hr Q8HR IV 01/21/25 06:00 Levothyroxine Sodium 100 mcg QAM@0600 PO 01/21/25 06:00 UNV Pregabalin 100 mg BID PO 01/21/25 10:00 UNV Metoprolol Succinate 50 mg DAILY PO 01/21/25 10:00 UNV Exam Vital Signs Vital Signs Date Time Temp Pulse Resp B/P (MAP) Pulse Ox O2 Delivery O2 Flow Rate FiO2 01/21/25 01:52 98.3 70 18 126/53 (77) 97 98.3 01/21/25 00:24 0.0 General Appearance: Alert, Oriented X3, Cooperative, mild distress HEENT: Atraumatic, PERRLA, EOMI Respiratory: Other (Diffuse wheezing) Abdominal: Normal bowel sounds, Soft, No tenderness Extremities: No clubbing, Other (Bilateral lower extremities edematous left > right. Erythematous changes to left lower extremity with sloughing skin) Neuro: Normal gait (Ambulating using F WW at baseline), Normal speech, Strength at 5/5 X4 ext Psych/Mental Status: Mental status NL, Mood NL Labs/Xrays Labs Test 01/20/25 20:58 Range/Units White Blood Count 11.0 H 4.4-10.8 10^3/uL Red Blood Count 4.05 4.0-5.20 10^6/uL Hemoglobin 11.5 L 12.2-16.2 g/dL Hematocrit 33.3 L 36.0-46.0 % Mean Corpuscular Volume 82.2 80.0-100.0 fL Mean Corpuscular Hemoglobin 28.3 28.0-32.0 pg Mean Corpuscular Hemoglobin Concent 34.5 32.0-36.0 g/dL Red Cell Distribution Width 15.0 H 11.8-14.3 % Platelet Count 496 H 140-450 10^3/uL Mean Platelet Volume 8.0 6.9-10.8 fL Neutrophils (%) (Auto) 81.6 H 37.0-80.0 % Lymphocytes (%) (Auto) 11.2 10.0-50.0 % Monocytes (%) (Auto) 6.1 0.0-12.0 % Eosinophils (%) (Auto) 0.5 0.0-7.0 % Basophils (%) (Auto) 0.6 0.0-2.0 % Neutrophils # (Auto) 9.0 H 1.6-8.6 10 ^3/uL Lymphocytes # (Auto) 1.2 0.4-5.4 10 ^3/uL Monocytes # (Auto) 0.7 0-1.3 10 ^3/uL Eosinophils # (Auto) 0.1 0-0.8 10 ^3/uL Basophils # (Auto) 0.1 0-0.2 10 ^3/uL Nucleated Red Blood Cells 0.0 % Erythrocyte Sedimentation Rate 50 H 0-20 mm/hr Sodium Level 133 L 136-145 mmol/L Potassium Level 4.6 3.5-5.1 mmol/L Chloride Level 98 98-107 mmol/L Carbon Dioxide Level 26 20-31 mmol/L Anion Gap 9 5-15 Blood Urea Nitrogen 19 9-23 mg/dL Creatinine 1.23 H 0.550-1.02 mg/dL Glomerular Filtration Rate Calc 50 >90 mL/min BUN/Creatinine Ratio 15.4 10.0-20.0 Serum Glucose 99 74-106 mg/dL Calcium Level 9.1 8.7-10.4 mg/dL C-Reactive Protein High Sensitivity 7.77 H <1.0 mg/dL B-Type Natriuretic Peptide 132.76 0-100 pg/mL SEPSIS Sepsis Screen Date sepsis recognized/suspect: Jan 20, 2025 Time Sepsis recognized/suspect: 1842 Recent Procedure: No On Antibiotic Therapy: No Respiratory Rate >20: No Heart Rate >90: No Temp<36 C (96.8 F) or >38.3 C: No SBP <90 or MAP <65 mmHG: No New Acute Mental Status Change: No Is the patient on CPAP, BIPAP,: No Physician Orders Bilat Lower Dvt (01/20/25 19:07) Blood Culture (01/20/25 20:46) Wound Culture W/ Gs (01/20/25 20:46) Ct L Tib Fib Wo Contrast (01/20/25 23:22) Admit (01/20/25 23:35) Code Status (01/20/25 23:35) Vital Signs .PER UNIT PROTOCOL (01/20/25 23:35) Review Orders With Adm.Md (01/20/25 23:35) Encourage Activity As Tolerate (01/20/25 23:35) Consistent Carb(Ccho)Diabetes (01/21/25 Breakfast) Sodium Chloride 0.9% (01/20/25 23:45) Oxygen By Face Mask (01/20/25 23:35) Docusate Sodium Capsule (Colace Capsule) (01/20/25 23:45) Acetaminophen Tablet (Tylenol Tablet) (01/20/25 23:45) Notify Md Of Changes From Base (01/20/25 23:35) Advance Directive (01/20/25 23:35) Basic Metabolic Panel (01/21/25 05:00) Basic Metabolic Panel (01/22/25 05:00) Basic Metabolic Panel (01/23/25 05:00) Basic Metabolic Panel (01/24/25 05:00) Basic Metabolic Panel (01/25/25 05:00) Complete Blood Count (01/21/25 05:00) Complete Blood Count (01/22/25 05:00) Complete Blood Count (01/23/25 05:00) Complete Blood Count (01/24/25 05:00) Complete Blood Count (01/25/25 05:00) Patient Condition (01/20/25 23:35) Allergies (01/20/25 23:35) Hydrocodone-Acet 5/325mg Tab ([place] 5/32 (01/20/25 23:45) Ondansetron Hcl (Zofran) (01/20/25 23:45) Morphine Sulfate Injection (01/20/25 23:45) Enoxaparin Sodium (Lovenox) (01/21/25 10:00) Nitroglycerin Sublingual (Ntrostat Subli (01/20/25 23:45) Morphine Sulfate Injection (01/20/25 23:45) Stat Ekg For Chest Pain (01/20/25 23:35) Notify Md Of Changes From Base (01/20/25 23:35) Stock Clipper For 24 Hours (01/20/25 23:35) Emergency Dysrhythmia Protocol (01/20/25 23:35) Rhythm Strips Once Every Shift (01/20/25 23:35) Oxygen By Nasal Cannula (01/20/25 23:35) * Infectious [place]- Dr. Nicolás Sears (01/20/25 23:35) Ceftriaxone 1gm/50ml (Rocephin) (01/21/25 10:00) Albuterol Medneb (Ventolin Medneb) (01/20/25 23:45) Ipratropium Medneb (Atrovent Medneb) (01/20/25 23:45) Wound Culture W/ Gs (01/20/25 23:35) Vancomycin Per Pharmacy (01/21/25 00:00) * Wound Consult (01/20/25 ) Clindamycin 900mg Iv (Cleocin Iv) (01/21/25 06:00) Levothyroxine Tablet (Synthroid Tablet) (01/21/25 06:00) Pregabalin Capsule (Lyrica Capsule) (01/21/25 10:00) Metoprolol Xl Succinate (Toprol Xl) (01/21/25 10:00) Vital Signs Date Time Temp Pulse Resp B/P (MAP) Pulse Ox O2 Delivery O2 Flow Rate FiO2 01/21/25 01:52 98.3 70 18 126/53 (77) 97 98.3 01/21/25 00:24 79 22 128/64 96 0.0 01/20/25 21:16 97.0 79 18 128/64 (85) 93 97.0 01/20/25 18:43 98.0 84 18 122/74 94 98.0 Laboratory Tests Test 01/20/25 20:58 White Blood Count 11.0 10^3/uL (4.4-10.8) H Medications Medications Dose Ordered Sig/Francisco Route Start Time Stop Time Status Last Admin Dose Admin Albuterol 2.5 mg Q4HPRN PRN NEB 01/20/25 23:45 01/21/25 00:17 2.5 MG Ceftriaxone Sodium 50 ml @ 100 mls/hr ONCE ONCE IV 01/20/25 21:00 01/20/25 21:29 DC 01/20/25 21:42 100 MLS/HR Ipratropium Union 0.5 mg Q4HPRN PRN NEB 01/20/25 23:45 01/21/25 00:16 0.5 MG Vancomycin HCl 250 ml @ 250 mls/hr ONCE ONCE IV 01/20/25 21:00 01/20/25 21:59 DC 01/20/25 22:15 250 MLS/HR Assessment/Plan Assessment/Plan Left lower extremity cellulitis, secondary to cat bite Hypertension COPD not in exacerbation Plan Admit to telemetry Consult infectious disease. Wound culture/blood cultures pending. CT LLE r/o abscess formation Broad-spectrum IV ABX IVF Bronchodilators. As needed, supplemental O2 to maintain oxygen saturation greater than 92%. 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 23:35 Encourage Activity As [facility]IO 01/20/25 In Process Tolerate 23:35 Consistent DIET 01/21/25 Transmitted Carb(Ccho)Diabetes Breakfast Sodium Chloride 0.9% PHA 01/20/25 In Process 23:45 Oxygen By Face Mask RT 01/20/25 Transmitted 23:35 Docusate Sodium PHA 01/20/25 In Process Capsule (Colace 23:45 Acetaminophen Tablet PHA 01/20/25 In Process (Tylenol Tablet) 23:45 Notify Of Changes [facility] 01/20/25 In Process From Base 23:35 Advance Directive [facility]IO 01/20/25 In Process 23:35 Basic Metabolic Panel LAB 01/21/25 Logged 05:00 Basic Metabolic Panel LAB 01/22/25 Verified 05:00 Basic Metabolic Panel LAB 01/23/25 Verified 05:00 Basic Metabolic Panel LAB 01/24/25 Verified 05:00 Basic Metabolic Panel LAB 01/25/25 Verified 05:00 Complete Blood Count LAB 01/21/25 Logged 05:00 Complete Blood Count LAB 01/22/25 Verified 05:00 Complete Blood Count LAB 01/23/25 Verified 05:00 Complete Blood Count LAB 01/24/25 Verified 05:00 Complete Blood Count LAB 01/25/25 Verified 05:00 Patient Condition ORDERS 01/20/25 Transmitted 23:35 Allergies [facility]IO 01/20/25 In Process 23:35 Hydrocodone-Acet PHA 01/20/25 In Process 5/325mg Tab ([place] 23:45 Ondansetron Hcl PHA 01/20/25 In Process (Zofran) 23:45 Morphine Sulfate PHA 01/20/25 In Process Injection 23:45 Enoxaparin Sodium PHA 01/21/25 In Process (Lovenox) 10:00 Nitroglycerin PHA 01/20/25 In Process Sublingual (Ntrostat 23:45 Morphine Sulfate PHA 01/20/25 In Process Injection 23:45 Stat Ekg For Chest [facility] 01/20/25 In Process Pain 23:35 Notify Of Changes [facility] 01/20/25 In Process From Base 23:35 Stock Clipper For [facility] 01/20/25 In Process 24 Hours 23:35 Emergency Dysrhythmia [facility]IO 01/20/25 In Process Protocol 23:35 Rhythm Strips Once [facility] 01/20/25 In Process Every Shift 23:35 Oxygen By Nasal RT 01/20/25 Transmitted Cannula 23:35 * Infectious [place]- CONS 01/20/25 Transmitted Nicolás Sears 23:35 Ceftriaxone 1gm/50ml PHA 01/21/25 In Process (Rocephin) 10:00 Albuterol Medneb PHA 01/20/25 In Process (Ventolin Medneb) 23:45 Ipratropium Medneb PHA 01/20/25 In Process (Atrovent Medneb) 23:45 Wound Culture W/ Gs ZAHIRA 01/20/25 Logged 23:35 Vancomycin Per PHA 01/21/25 Pending Pharmacy 00:00 * Wound Consult CONS 01/20/25 Transmitted Clindamycin 900mg Iv PHA 01/21/25 In Process (Cleocin Iv) 06:00 Levothyroxine Tablet PHA 01/21/25 Logged (Synthroid Tablet) 06:00 Pregabalin Capsule PHA 01/21/25 Logged (Lyrica Capsule) 10:00 Metoprolol Xl PHA 01/21/25 Logged Succinate (Toprol Xl) 10:00 Date of Service: Jan 21, 2025 Billing Provider: RUI ADDISON MD Common Visit Codes: NOT BILLABLE RUI ADDISON MD 01/21/25 1349: Review of Systems Allergies: Coded Allergies: Penicillins (Verified Allergy, Unknown, 02/10/19) Additional Comments Additional Comments Additional Comments 60-year-old female with a known history of COPD, hypertension, hypothyroidism, who initially presented to the hospital with a left lower extremity worsening cellulitis after cat bite which happened about two three weeks ago. Patient was previously seen in the ER on January 11 and but left against medical advice. 1. Left lower extremity cat bite cellulitis 2. Mild leukocytosis 3. COPD 4. Hypothyroidism 5. Hypertension 6. Anxiety disorder 7. Morbid obesity classIII -broad-spectrum IV antibiotics, infectious disease consultation. NICA DINH NP Jan 21, 2025 02:20 RUI ADDISON MD Jan 21, 2025 13:49
[2025-01-21] MEDS ORDERED: LIOT25TA19 PO (04:53)
[2025-01-21] MEDS ORDERED: POTA-36 PO (04:53)
[2025-01-21] MEDS ORDERED: LEVO100T8 PO (04:53)
[2025-01-21] MEDS ORDERED: PREG200C19 PO (04:53)
[2025-01-21] MEDS ORDERED: METO-289 PO (04:53)
[2025-01-21] MEDS ORDERED: DULO1CAP6 PO (04:53)
[2025-01-21] MEDS ORDERED: FURO20TA3 PO (04:53)
[2025-01-21] MEDS ORDERED: LISI20TA56 PO ×2 (04:53)
[2025-01-21] MEDS ORDERED: VERA180T60 PO (04:53)
[2025-01-21] MEDS: LEVOTHYROXINE SODIUM 100 MCG TAB PO SCH (05:43)
[2025-01-21] MEDS: CLINDAMYCIN 900MG IV 50 ML IV SCH (05:44)
[2025-01-21 07:10] LABS: Hematocrit 33.5 % (36.0-46.0); Hemoglobin 11.1 g/dL (12.2-16.2); Mean Corpuscular Hemoglobin 27.2 pg (28.0-32.0); Mean Corpuscular Volume 82.2 fL (80.0-100.0); Nucleated Red Blood Cells % 0.0 %
[2025-01-21 07:23] LABS: Anion Gap 9 (5-15); Carbon Dioxide 26 mmol/L (20-31); Chloride 99 mmol/L (98-107); Potassium 3.9 mmol/L (3.5-5.1)
[2025-01-21 07:25] LABS: Calcium 8.9 mg/dL (8.7-10.4)
[2025-01-21 07:29] LABS: BUN/Creatinine Ratio 17.0 (10.0-20.0); Blood Urea Nitrogen 18 mg/dL (9-23); Glucose 99 mg/dL (74-106)
[2025-01-21 07:30] LABS: Sodium 134 mmol/L (136-145)
[2025-01-21] MEDS: ENOXAPARIN SOD 40 MG/0.4 ML SYRINGE SC SCH (10:38)
[2025-01-21] MEDS: METOPROLOL SUCCINATE XL 50 MG TAB PO SCH (10:39)
[2025-01-21] MEDS: PREGABALIN 25 MG CAP PO SCH (10:39)
[2025-01-21] MEDS: VANCOMYCIN 500mg/100mL 100 ML IV SCH (11:00)
[2025-01-21] MEDS: HYDROcodone-ACET 5/325MG TAB PO PRN (23:40)
[2025-01-22] VITALS (13 sets, daily range): BP systolic 116–146; BP diastolic 55–80; PULSE 66–87; RESP 16–20; TEMP 97.8–98.6; O2SAT 94–100
[2025-01-22 06:38] LABS: Hematocrit 30.3 % (36.0-46.0); Hemoglobin 10.3 g/dL (12.2-16.2); Mean Corpuscular Hemoglobin 28.0 pg (28.0-32.0); Mean Corpuscular Volume 82.0 fL (80.0-100.0); Nucleated Red Blood Cells % 0.0 %
[2025-01-22 06:41] LABS: Anion Gap 8 (5-15); Carbon Dioxide 27 mmol/L (20-31); Chloride 100 mmol/L (98-107); Potassium 3.6 mmol/L (3.5-5.1)
[2025-01-22 06:47] LABS: BUN/Creatinine Ratio 16.1 (10.0-20.0); Blood Urea Nitrogen 14 mg/dL (9-23); Glucose 96 mg/dL (74-106)
[2025-01-22 07:05] LABS: Calcium 8.6 mg/dL (8.7-10.4); Sodium 135 mmol/L (136-145)
--- NOTE | 2025-01-22 16:08 | DVHPN2 ---
Subjective Patient's left leg cellulitis improved significantly. Changes from previous H/P or p: No Changes Eyes: No Pain, No Vision change, No Conjunctivae inflammation, No Eyelid inflammation, No Other, No Redness ENT: No Ear pain, No Ear discharge, No Nose pain, No Nose discharge, No Nose congestion, No Mouth pain, No Mouth swelling, No Throat pain, No Throat swelling, No Other Cardiovascular: No Chest Pain, No Palpitations, No Orthopnea, No Paroxysmal Noc. Dyspnea, No Edema, No Lt Headedness, No Other Respiratory: No Cough, No Dry, No Shortness of breath, No SOB with excertion, No Wheezing, No Hemoptysis, No Pleuritic Pain, No Sputum, No Other Gastrointestinal: No Nausea, No Vomiting, No Abdominal Pain, No Diarrhea, No Constipation, No Melena, No Hematochezia, No Other Genitourinary: No Dysuria, No Frequency, No Incontinence, No Hematuria, No Retention, No Other Musculoskeletal: leg pain Skin: Rash, Lesions, Other Objective Vitals Vital Signs Date Time Temp Pulse Resp B/P (MAP) Pulse Ox O2 Delivery O2 Flow Rate FiO2 01/22/25 15:35 75 18 100 01/22/25 15:29 Room Air* 0 21 01/22/25 12:37 97.9 125/79 (94) 97.9 Intake/Output Intake and Output 01/22/25 07:00 Intake Total 1990 ml Output Total 900 ml Balance 1090 ml Intake Oral 1990 ml Output Urine Total 900 ml # Voids 2 Exam HEENT pupils are reactive Neck is supple CV is S1-S2 regular rate and rhythm Respiratory diminished breath sounds bases GI positive bowel sound Extremity trace edema of the left leg as well as positive redness and cellulitis. METHODS ANALYST DATA PROCESSING no motor deficit Medications Current Medications Medications Dose Ordered Sig/Francisco Route Start Time Stop Time Status Last Admin Dose Admin Docusate Sodium 100 mg BIDPRN PRN PO 01/20/25 23:45 Acetaminophen 650 mg Q6HP PRN PO 01/20/25 23:45 Acetaminophen/ Hydrocodone Bitart 1 tab Q4HP PRN PO 01/20/25 23:45 01/21/25 23:40 1 TAB Ondansetron HCl 4 mg Q4HP PRN IV 01/20/25 23:45 Morphine Sulfate 2 mg Q4HPRN PRN IV 01/20/25 23:45 Enoxaparin Sodium 40 mg DAILY SC 01/21/25 10:00 01/22/25 08:48 40 MG Nitroglycerin 0.4 mg Q5MINP PRN SL 01/20/25 23:45 Morphine Sulfate 2 mg Q30M PRN IV 01/20/25 23:45 Ceftriaxone Sodium 50 ml @ 100 mls/hr DAILY@0900 IV 01/21/25 09:00 01/22/25 08:47 100 MLS/HR Albuterol 2.5 mg Q4HPRN PRN NEB 01/20/25 23:45 01/22/25 15:29 2.5 MG Ipratropium [place] 0.5 mg Q4HPRN PRN NEB 01/20/25 23:45 01/22/25 15:29 0.5 MG Vancomycin HCl 0 ml @ 0 mls/hr UD IV 01/21/25 00:00 Clindamycin Phosphate 50 ml @ 50 mls/hr Q8HR IV 01/21/25 06:00 01/22/25 05:13 50 MLS/HR Levothyroxine Sodium 100 mcg QAM@0600 PO 01/21/25 06:00 01/22/25 05:15 100 MCG Pregabalin 100 mg BID PO 01/21/25 10:00 01/22/25 08:48 100 MG Metoprolol Succinate 50 mg DAILY PO 01/21/25 10:00 01/22/25 08:48 50 MG Vancomycin HCl 100 ml @ 200 mls/hr Q12H IV 01/21/25 11:00 01/22/25 11:00 200 MLS/HR Laboratory Results Laboratory Tests 01/22/25 05:30 Chemistry Test 01/22/25 05:30 Calcium Level 8.6 mg/dL (8.7-10.4) L Microbiology Microbiology Date/Time Source Procedure Growth Status 01/20/25 20:58 Blood Blood Culture - Preliminary NO GROWTH AFTER 24 HOURS OF INCUBATION. Resulted Assessment/Plan Assessment/Plan 60-year-old female with a known history of COPD, hypertension, hypothyroidism, who initially presented to the hospital with a left lower extremity worsening cellulitis after cat bite which happened about two three weeks ago. Patient was previously seen in the ER on January 11 and but left against medical advice. 1. Left lower extremity cat bite cellulitis 2. Mild leukocytosis 3. COPD 4. Hypothyroidism 5. Hypertension 6. Anxiety disorder 7. Morbid obesity classIII -broad-spectrum IV antibiotics, infectious disease consultation, discharge plan in next 24-48 hours. Plan discussed with: Patient, Son Date of Service: Jan 22, 2025 Billing Provider: RUI ADDISON MD Common Visit Codes: NOT BILLABLE RUI ADDISON MD Jan 22, 2025 16:08
--- NOTE | 2025-01-22 18:22 | DVHINCON2 ---
Family History: Asthma G8 MOTHER Colon cancer G8 FATHER Allergies: Coded Allergies: Penicillins (Verified Allergy, Unknown, 02/10/19) Home Meds Reported Medications Potassium Chloride (POTASSIUM CHLORIDE CR) 10 Meq Tb, 20 MEQ PO DAILY, TAB 01/21/25 Furosemide (Furosemide) 20 Mg Tab, 20 MG PO DAILY for 30 Days, MG 01/21/25 Duloxetine HCl (Duloxetine HCl) 60 Mg Cap, 60 MG PO DAILY, CAP 01/21/25 Pregabalin (Lyrica) 200 Mg Cap, 2 CAP PO DAILY, #60 CAP 01/21/25 Lisinopril (Lisinopril) 20 Mg Tab, 20 MG PO DAILY for 30 Days, MG 01/21/25 Lisinopril (Lisinopril) 20 Mg Tab, 20 MG PO DAILY for 30 Days, MG 01/21/25 Verapamil Hcl (Verapamil Hcl Er) 180 Mg Tab, 180 MG PO, TAB 01/21/25 Metoprolol Succinate (Metoprolol Succinate Er) 50 Mg Tab, 50 MG PO DAILY for 30 Days, MG 01/21/25 Liothyronine Sodium (Liothyronine Sodium) 25 Mcg Tab, 25 MCG PO DAILY, TAB 01/21/25 Levothyroxine Sodium (Levothyroxine Sodium) 100 Mcg Tab, 100 MCG PO QAM for 30 Days, MCG 01/21/25 Current Medications Current Medications Medications (Trade) Dose Ordered Sig/Francisco Route PRN Reason Start Time Stop Time Status Last Admin Vancomycin HCl 250 ml @ 200 mls/hr Q12H IV 01/22/25 23:00 Vital Signs Vital Signs Date Time Temp Pulse Resp B/P (MAP) Pulse Ox O2 Delivery O2 Flow Rate FiO2 01/22/25 17:00 97.8 83 20 127/58 (81) 94 97.8 01/22/25 15:29 Room Air* 0 21 Labs/Diagnostic Data Labs Test 01/22/25 10:29 01/22/25 05:30 01/21/25 06:06 01/20/25 20:58 Range/Units Vancomycin Level Trough 9.2 5-10 ug/mL White Blood Count 7.3 4.4-10.8 10^3/uL Red Blood Count 3.69 L 4.0-5.20 10^6/uL Hemoglobin 10.3 L 12.2-16.2 g/dL Hematocrit 30.3 L 36.0-46.0 % Mean Corpuscular Volume 82.0 80.0-100.0 fL Mean Corpuscular Hemoglobin 28.0 28.0-32.0 pg Mean Corpuscular Hemoglobin Concent 34.2 32.0-36.0 g/dL Red Cell Distribution Width 14.7 H 11.8-14.3 % Platelet Count 409 140-450 10^3/uL Mean Platelet Volume 7.9 6.9-10.8 fL Neutrophils (%) (Auto) 75.6 37.0-80.0 % Lymphocytes (%) (Auto) 15.2 10.0-50.0 % Monocytes (%) (Auto) 7.3 0.0-12.0 % Eosinophils (%) (Auto) 1.0 0.0-7.0 % Basophils (%) (Auto) 0.9 0.0-2.0 % Neutrophils # (Auto) 5.5 1.6-8.6 10 ^3/uL Lymphocytes # (Auto) 1.1 0.4-5.4 10 ^3/uL Monocytes # (Auto) 0.5 0-1.3 10 ^3/uL Eosinophils # (Auto) 0.1 0-0.8 10 ^3/uL Basophils # (Auto) 0.1 0-0.2 10 ^3/uL Nucleated Red Blood Cells 0.0 % Sodium Level 135 L 136-145 mmol/L Potassium Level 3.6 3.5-5.1 mmol/L Chloride Level 100 98-107 mmol/L Carbon Dioxide Level 27 20-31 mmol/L Anion Gap 8 5-15 Blood Urea Nitrogen 14 9-23 mg/dL Creatinine 0.87 0.550-1.02 mg/dL Glomerular Filtration Rate Calc 75 >90 mL/min BUN/Creatinine Ratio 16.1 10.0-20.0 Serum Glucose 96 74-106 mg/dL Calcium Level 8.6 L 8.7-10.4 mg/dL Erythrocyte Sedimentation Rate 50 H 0-20 mm/hr C-Reactive Protein High Sensitivity 7.77 H <1.0 mg/dL B-Type Natriuretic Peptide 132.76 0-100 pg/mL Microbiology Date/Time Source Procedure Growth Status 01/20/25 20:58 Blood Blood Culture - Preliminary NO GROWTH AFTER 24 HOURS OF INCUBATION. JOHN Quevedo MD Jan 22, 2025 18:22
--- NOTE | 2025-01-22 18:23 | DVHPN2 ---
Consult Progress Note Objective vital signs Vital Sign Date Time Temp Pulse Resp B/P (MAP) Pulse Ox O2 Delivery O2 Flow Rate FiO2 01/22/25 17:00 97.8 83 20 127/58 (81) 94 97.8 01/22/25 15:29 Room Air* 0 21 Total Intake and Output 01/21/25 01/21/25 01/22/25 15:00 23:00 07:00 Intake Total 1040 ml 950 ml Output Total 900 ml Balance 1040 ml 50 ml medications Current Medications Medications Dose Ordered Sig/Francisco Route Start Time Stop Time Status Last Admin Dose Admin Docusate Sodium 100 mg BIDPRN PRN PO 01/20/25 23:45 Acetaminophen 650 mg Q6HP PRN PO 01/20/25 23:45 Acetaminophen/ Hydrocodone Bitart 1 tab Q4HP PRN PO 01/20/25 23:45 01/21/25 23:40 1 TAB Ondansetron HCl 4 mg Q4HP PRN IV 01/20/25 23:45 Morphine Sulfate 2 mg Q4HPRN PRN IV 01/20/25 23:45 Enoxaparin Sodium 40 mg DAILY SC 01/21/25 10:00 01/22/25 08:48 40 MG Nitroglycerin 0.4 mg Q5MINP PRN SL 01/20/25 23:45 Morphine Sulfate 2 mg Q30M PRN IV 01/20/25 23:45 Ceftriaxone Sodium 50 ml @ 100 mls/hr DAILY@0900 IV 01/21/25 09:00 01/22/25 08:47 100 MLS/HR Albuterol 2.5 mg Q4HPRN PRN NEB 01/20/25 23:45 01/22/25 15:29 2.5 MG Ipratropium [place] 0.5 mg Q4HPRN PRN NEB 01/20/25 23:45 01/22/25 15:29 0.5 MG Vancomycin HCl 0 ml @ 0 mls/hr UD IV 01/21/25 00:00 Clindamycin Phosphate 50 ml @ 50 mls/hr Q8HR IV 01/21/25 06:00 01/22/25 17:01 50 MLS/HR Levothyroxine Sodium 100 mcg QAM@0600 PO 01/21/25 06:00 01/22/25 05:15 100 MCG Pregabalin 100 mg BID PO 01/21/25 10:00 01/22/25 08:48 100 MG Metoprolol Succinate 50 mg DAILY PO 01/21/25 10:00 01/22/25 08:48 50 MG Vancomycin HCl 250 ml @ 200 mls/hr Q12H IV 01/22/25 23:00 laboratory and microbiology Laboratory Tests 01/22/25 05:30 Test 01/22/25 05:30 Range/Units Serum Glucose 96 74-106 mg/dL Dietary Evaluation Review Recommendations by RD: Dietary education by RD Comments: 1) Initiate MVI @ 1 tb qd 2) Initiate vitamin C @ 500 mg bid and zinc sulfate @ 220 mg qd for 7 days 3) Refer to outpatient RD for weight management 4) Follow-up with cardiology and pulmonology 5) Continue to monitor I&O, labs, and skin integrity Expected Outcomes/Goals: 1) appetite and labs to improve 2) wound to improve 3) gradual wt loss 4) f/u in 3-5 days JOHN LYNN MD Jan 22, 2025 18:23
[2025-01-22] MEDS: VANCOMYCIN 1.25GM/250ML 250 ML IV SCH (23:05)
[2025-01-23] VITALS (12 sets, daily range): BP systolic 119–146; BP diastolic 68–73; PULSE 67–81; RESP 16–20; TEMP 97.6–98.5; O2SAT 93–100
[2025-01-23 06:40] LABS: Hematocrit 30.1 % (36.0-46.0); Hemoglobin 10.4 g/dL (12.2-16.2); Mean Corpuscular Hemoglobin 28.2 pg (28.0-32.0); Mean Corpuscular Volume 81.7 fL (80.0-100.0); Nucleated Red Blood Cells % 0.0 %
[2025-01-23 06:41] LABS: Anion Gap 8 (5-15); Carbon Dioxide 27 mmol/L (20-31); Potassium 3.6 mmol/L (3.5-5.1)
[2025-01-23 06:46] LABS: Calcium 8.6 mg/dL (8.7-10.4); Chloride 98 mmol/L (98-107); Sodium 133 mmol/L (136-145)
[2025-01-23 06:47] LABS: BUN/Creatinine Ratio 11.8 (10.0-20.0); Blood Urea Nitrogen 11 mg/dL (9-23); Glucose 92 mg/dL (74-106)
[2025-01-23 10:29] LABS: Hepatitis B Surface Antigen Negative (Negative); Hepatitis C Antibody Negative (Negative)
--- NOTE | 2025-01-23 15:52 | DVHPN2 ---
Subjective Patient's left leg cellulitis improved significantly. Changes from previous H/P or p: No Changes Eyes: No Pain, No Vision change, No Conjunctivae inflammation, No Eyelid inflammation, No Other, No Redness ENT: No Ear pain, No Ear discharge, No Nose pain, No Nose discharge, No Nose congestion, No Mouth pain, No Mouth swelling, No Throat pain, No Throat swelling, No Other Cardiovascular: No Chest Pain, No Palpitations, No Orthopnea, No Paroxysmal Noc. Dyspnea, No Edema, No Lt Headedness, No Other Respiratory: No Cough, No Dry, No Shortness of breath, No SOB with excertion, No Wheezing, No Hemoptysis, No Pleuritic Pain, No Sputum, No Other Gastrointestinal: No Nausea, No Vomiting, No Abdominal Pain, No Diarrhea, No Constipation, No Melena, No Hematochezia, No Other Genitourinary: No Dysuria, No Frequency, No Incontinence, No Hematuria, No Retention, No Other Musculoskeletal: leg pain Skin: Rash, Lesions, Other Objective Vitals Vital Signs Date Time Temp Pulse Resp B/P (MAP) Pulse Ox O2 Delivery O2 Flow Rate FiO2 01/23/25 12:53 97.6 69 20 142/73 (96) 94 97.6 01/23/25 10:15 Room Air* 0 21 Intake/Output Intake and Output 01/23/25 07:00 Intake Total 2430 ml Balance 2430 ml Intake Oral 2080 ml IV Total 350 ml # Voids 8 # Bowel Movements 1 Exam HEENT pupils are reactive Neck is supple CV is S1-S2 regular rate and rhythm Respiratory diminished breath sounds bases GI positive bowel sound Extremity trace edema of the left leg as well as positive redness and cellulitis. [employer] no motor deficit Medications Current Medications Medications Dose Ordered Sig/Francisco Route Start Time Stop Time Status Last Admin Dose Admin Docusate Sodium 100 mg BIDPRN PRN PO 01/20/25 23:45 Acetaminophen 650 mg Q6HP PRN PO 01/20/25 23:45 Acetaminophen/ Hydrocodone Bitart 1 tab Q4HP PRN PO 01/20/25 23:45 01/23/25 06:19 1 TAB Ondansetron HCl 4 mg Q4HP PRN IV 01/20/25 23:45 Morphine Sulfate 2 mg Q4HPRN PRN IV 01/20/25 23:45 Enoxaparin Sodium 40 mg DAILY SC 01/21/25 10:00 01/23/25 08:46 40 MG Nitroglycerin 0.4 mg Q5MINP PRN SL 01/20/25 23:45 Morphine Sulfate 2 mg Q30M PRN IV 01/20/25 23:45 Ceftriaxone Sodium 50 ml @ 100 mls/hr DAILY@0900 IV 01/21/25 09:00 01/23/25 08:47 100 MLS/HR Albuterol 2.5 mg Q4HPRN PRN NEB 01/20/25 23:45 01/22/25 15:29 2.5 MG Ipratropium [place] 0.5 mg Q4HPRN PRN NEB 01/20/25 23:45 01/22/25 15:29 0.5 MG Vancomycin HCl 0 ml @ 0 mls/hr UD IV 01/21/25 00:00 Clindamycin Phosphate 50 ml @ 50 mls/hr Q8HR IV 01/21/25 06:00 01/23/25 15:12 50 MLS/HR Levothyroxine Sodium 100 mcg QAM@0600 PO 01/21/25 06:00 01/23/25 05:49 100 MCG Pregabalin 100 mg BID PO 01/21/25 10:00 01/23/25 08:46 100 MG Metoprolol Succinate 50 mg DAILY PO 01/21/25 10:00 01/23/25 08:46 50 MG Vancomycin HCl 250 ml @ 200 mls/hr Q12H IV 01/22/25 23:00 01/23/25 11:28 200 MLS/HR Laboratory Results Laboratory Tests 01/23/25 05:12 Chemistry Test 01/23/25 05:12 Calcium Level 8.6 mg/dL (8.7-10.4) L Microbiology Microbiology Date/Time Source Procedure Growth Status 01/22/25 17:11 Leg Left Gram Stain - Final Resulted 01/22/25 17:11 Leg Left Wound Culture - Preliminary Resulted 01/20/25 20:58 Blood Blood Culture - Preliminary NO GROWTH AFTER 48 HOURS OF INCUBATION. Resulted Assessment/Plan Assessment/Plan 60-year-old female with a known history of COPD, hypertension, hypothyroidism, who initially presented to the hospital with a left lower extremity worsening cellulitis after cat bite which happened about two three weeks ago. Patient was previously seen in the ER on January 11 and but left against medical advice. 1. Left lower extremity cat bite cellulitis 2. Mild leukocytosis 3. COPD 4. Hypothyroidism 5. Hypertension 6. Anxiety disorder 7. Morbid obesity classIII -broad-spectrum IV antibiotics, infectious disease consultation, discharge plan in next 24-48 hours. Plan discussed with: Patient Date of Service: Jan 23, 2025 Billing Provider: RUI ADDISON MD Common Visit Codes: NOT BILLABLE RUI ADDISON MD Jan 23, 2025 15:52
--- NOTE | 2025-01-23 16:09 | MEDREC ---
REPLACED BY [facility] Intervention Section I REPLACED BY [facility] Intervention: IV to PO conversion (Please consider clindamycin IV => PO) [facility] RESIDENT Jan 23, 2025 16:09
--- NOTE | 2025-01-23 16:35 | DVHPNRES ---
Progress Note Date Seen: Jan 23, 2025 Resident Creating Document: ALVIN BATES RESIDENT Has the PT tested + for MRSA If YES, has PT been informed?: No Medical Necessity Reason Pt with a Central, PICC or Fol: No Subjective Review of Systems This is a 60-year-old female with past medical history of hypertension, COPD, hypothyroidism, who presented to the ED with chief complaint of cellulitis of the left lower extremity after a cat bite. The patient states that she 1st came to the hospital on 01/11/25 but went against medical advice. At that time patient received IV vancomycin and after suggesting admission, patient went AMA. Patient presented to the ED four days back with significant left lower extremity cellulitis, erythema extending from the left ankle all the way just below the left knee. There is significant swelling compared to right lower extremity and painful to palpation. Patient did reported fever and chills three days after the cat bite which was approximately on 01/04/2025. Today, patient states that the erythema and swelling has been slightly improving compared to admission. Blood cultures came back negative and wound cultures are showing rare Gram-positive cocci young colonies. Patient is currently on vancomycin, ceftriaxone and clindamycin. ROS Constitutional: Denies weight loss, fever and chills. HEENT: Denies changes in vision and hearing. Respiratory: Denies shortness of breath and cough Cardiovascular: Denies chest discomfort or palpitations GI: Denies abdominal pain, nausea, vomiting and diarrhea. : Denies dysuria and urinary frequency. Musculoskeletal: Reports significant pain and swelling in the left lower extremity. Skin: Denies rash and pruritus. Neurological: Denies dizziness, headache, vision or hearing problems Objective vital signs Vital Sign Date Time Temp Pulse Resp B/P (MAP) Pulse Ox O2 Delivery O2 Flow Rate FiO2 01/23/25 12:53 97.6 69 20 142/73 (96) 94 97.6 01/23/25 10:15 Room Air* 0 21 Total Intake and Output 01/22/25 01/22/25 01/23/25 15:00 23:00 07:00 Intake Total 480 ml 800 ml 1150 ml Balance 480 ml 800 ml 1150 ml medications Current Medications Medications Dose Ordered Sig/Francisco Route Start Time Stop Time Status Last Admin Dose Admin Docusate Sodium 100 mg BIDPRN PRN PO 01/20/25 23:45 Acetaminophen 650 mg Q6HP PRN PO 01/20/25 23:45 Acetaminophen/ Hydrocodone Bitart 1 tab Q4HP PRN PO 01/20/25 23:45 01/23/25 06:19 1 TAB Ondansetron HCl 4 mg Q4HP PRN IV 01/20/25 23:45 Morphine Sulfate 2 mg Q4HPRN PRN IV 01/20/25 23:45 Enoxaparin Sodium 40 mg DAILY SC 01/21/25 10:00 01/23/25 08:46 40 MG Nitroglycerin 0.4 mg Q5MINP PRN SL 01/20/25 23:45 Morphine Sulfate 2 mg Q30M PRN IV 01/20/25 23:45 Ceftriaxone Sodium 50 ml @ 100 mls/hr DAILY@0900 IV 01/21/25 09:00 01/23/25 08:47 100 MLS/HR Albuterol 2.5 mg Q4HPRN PRN NEB 01/20/25 23:45 01/22/25 15:29 2.5 MG Ipratropium [place] 0.5 mg Q4HPRN PRN NEB 01/20/25 23:45 01/22/25 15:29 0.5 MG Vancomycin HCl 0 ml @ 0 mls/hr UD IV 01/21/25 00:00 Clindamycin Phosphate 50 ml @ 50 mls/hr Q8HR IV 01/21/25 06:00 01/23/25 15:12 50 MLS/HR Levothyroxine Sodium 100 mcg QAM@0600 PO 01/21/25 06:00 01/23/25 05:49 100 MCG Pregabalin 100 mg BID PO 01/21/25 10:00 01/23/25 08:46 100 MG Metoprolol Succinate 50 mg DAILY PO 01/21/25 10:00 01/23/25 08:46 50 MG Vancomycin HCl 250 ml @ 200 mls/hr Q12H IV 01/22/25 23:00 01/23/25 11:28 200 MLS/HR Examination Physical Examination General: Patient alert and oriented in person, place and time. Patient following commands. HEENT: Normocephalic, atraumatic, moist mucous membranes Respiratory/pulmonary: Clear lungs bilaterally, vesicular murmurs present in almost all lung albarran, no associated crackles or wheezes. Cardiovascular: Normal heart sounds S1 and S2 with no associated murmurs Abdomen: Abdomen nondistended, there is no pain to palpation in any of the abdominal quadrants, no palpable masses. Extremities: There is significant swelling and erythema extending from the left ankle all the way below the left knee. There is no open wound present in the left lower extremity at this time. Skin: No rashes or pruritus, there is no sacral edema present at this time. Neurological: Intact cranial nerves with no focal neurologic deficits laboratory and microbiology Laboratory Tests 01/23/25 05:12 Test 01/23/25 05:12 Range/Units Serum Glucose 92 74-106 mg/dL Microbiology Date/Time Source Procedure Growth Status 01/22/25 17:11 Leg Left Gram Stain - Final Resulted 01/22/25 17:11 Leg Left Wound Culture - Preliminary Resulted 01/20/25 20:58 Blood Blood Culture - Preliminary NO GROWTH AFTER 48 HOURS OF INCUBATION. Resulted Problem List/Assessment/Plan Problem List/Assessment/Plan Assessment/plan Acute left lower extremity cellulitis due to cat bite Primary hypertension COPD, stable Hypothyroidism Morbid obesity History of anxiety disorder Plan -Stop vancomycin -continue IV ceftriaxone -Continue clindamycin IV -Patient can be Discharged on PO clindamycin 500mg TID and Cefuroxime 500mg BID both for 14 days. -Continue rest of care per primary team Goals of care discussed with patient at bedside, full code Plan discussed with Dr. Sears Plan discussed with: Patient Dietary Evaluation Review Recommendations by RD: Dietary education by RD Comments: 1) Initiate MVI @ 1 tb qd 2) Initiate vitamin C @ 500 mg bid and zinc sulfate @ 220 mg qd for 7 days 3) Refer to outpatient RD for weight management 4) Follow-up with cardiology and pulmonology 5) Continue to monitor I&O, labs, and skin integrity Expected Outcomes/Goals: 1) appetite and labs to improve 2) wound to improve 3) gradual wt loss 4) f/u in 3-5 days ALVIN BATES RESIDENT Jan 23, 2025 16:35
[2025-01-23] MEDS: CLINDAMYCIN 900MG IV 50 ML IV SCH (21:11)
[2025-01-23] MEDS ORDERED: CLINDAMYCIN HCL 150 MG CAP PO SCH (22:00)
[2025-01-23] MEDS ORDERED: CEFUROXIME 250 MG TAB PO SCH (22:00)
[2025-01-24] VITALS (14 sets, daily range): BP systolic 134–162; BP diastolic 68–77; PULSE 62–92; RESP 14–18; TEMP 97.4–98.6; O2SAT 93–100
[2025-01-24 06:18] LABS: Hematocrit 29.7 % (36.0-46.0); Hemoglobin 10.4 g/dL (12.2-16.2); Mean Corpuscular Hemoglobin 28.7 pg (28.0-32.0); Mean Corpuscular Volume 82.4 fL (80.0-100.0); Nucleated Red Blood Cells % 0.0 %
[2025-01-24 06:33] LABS: Chloride 99 mmol/L (98-107); Potassium 3.8 mmol/L (3.5-5.1); Sodium 136 mmol/L (136-145)
[2025-01-24 06:34] LABS: Anion Gap 9 (5-15); Carbon Dioxide 28 mmol/L (20-31)
[2025-01-24 06:38] LABS: Calcium 8.4 mg/dL (8.7-10.4)
[2025-01-24 06:39] LABS: BUN/Creatinine Ratio 10.7 (10.0-20.0); Blood Urea Nitrogen 9 mg/dL (9-23); Glucose 90 mg/dL (74-106)
--- NOTE | 2025-01-24 14:22 | DVHPNRES ---
Progress Note Date Seen: Jan 24, 2025 Resident Creating Document: ALVIN BATES RESIDENT Has the PT tested + for MRSA If YES, has PT been informed?: No Medical Necessity Reason Pt with a Central, PICC or Fol: No Subjective Review of Systems This is a 60-year-old female with past medical history of hypertension, COPD, hypothyroidism, who presented to the ED with chief complaint of cellulitis of the left lower extremity after a cat bite. The patient states that she 1st came to the hospital on 01/11/25 but went against medical advice. At that time patient received IV vancomycin and after suggesting admission, patient went AMA. Patient presented to the ED four days back with significant left lower extremity cellulitis, erythema extending from the left ankle all the way just below the left knee. There is significant swelling compared to right lower extremity and painful to palpation. Patient did reported fever and chills three days after the cat bite which was approximately on 01/04/2025. Today, patient states that the erythema and swelling has been slightly improving compared to admission. Blood cultures came back negative and wound cultures are showing rare Gram-positive cocci young colonies. Patient seen and examined at bedside. Yesterday we discontinues vancomycin and kept the patient on clindamycin and ceftriaxone IV. Patient states that the swelling and erythema is slightly improving compare to admission. Patient denies fever, chills or any other complains at this time. Patient can be DC on cefuroxime 500mg BID and clindamycin 500mg TID for 14 days. ROS Constitutional: Denies weight loss, fever and chills. HEENT: Denies changes in vision and hearing. Respiratory: Denies shortness of breath and cough Cardiovascular: Denies chest discomfort or palpitations GI: Denies abdominal pain, nausea, vomiting and diarrhea. : Denies dysuria and urinary frequency. Musculoskeletal: Reports improvement of swelling and eryhtema compare to admission. Skin: Denies rash and pruritus. Neurological: Denies dizziness, headache, vision or hearing problems Objective vital signs Vital Sign Date Time Temp Pulse Resp B/P (MAP) Pulse Ox O2 Delivery O2 Flow Rate FiO2 01/24/25 12:42 97.4 69 18 148/68 (94) 97 97.4 01/24/25 08:00 Room Air* 0 21 Total Intake and Output 01/23/25 01/23/25 01/24/25 15:00 23:00 07:00 Intake Total 780 ml 900 ml 850 ml Balance 780 ml 900 ml 850 ml medications Current Medications Medications Dose Ordered Sig/Francisco Route Start Time Stop Time Status Last Admin Dose Admin Docusate Sodium 100 mg BIDPRN PRN PO 01/20/25 23:45 Acetaminophen 650 mg Q6HP PRN PO 01/20/25 23:45 Acetaminophen/ Hydrocodone Bitart 1 tab Q4HP PRN PO 01/20/25 23:45 01/24/25 08:04 1 TAB Ondansetron HCl 4 mg Q4HP PRN IV 01/20/25 23:45 Morphine Sulfate 2 mg Q4HPRN PRN IV 01/20/25 23:45 Enoxaparin Sodium 40 mg DAILY SC 01/21/25 10:00 01/24/25 09:26 40 MG Nitroglycerin 0.4 mg Q5MINP PRN SL 01/20/25 23:45 Morphine Sulfate 2 mg Q30M PRN IV 01/20/25 23:45 Albuterol 2.5 mg Q4HPRN PRN NEB 01/20/25 23:45 01/23/25 19:57 2.5 MG Ipratropium [place] 0.5 mg Q4HPRN PRN NEB 01/20/25 23:45 01/23/25 19:57 0.5 MG Levothyroxine Sodium 100 mcg QAM@0600 PO 01/21/25 06:00 01/24/25 05:41 100 MCG Pregabalin 100 mg BID PO 01/21/25 10:00 01/24/25 09:24 100 MG Metoprolol Succinate 50 mg DAILY PO 01/21/25 10:00 01/24/25 09:24 50 MG Clindamycin Phosphate 50 ml @ 50 mls/hr Q8HR IV 01/23/25 22:00 01/24/25 05:42 50 MLS/HR Cefuroxime Axetil 500 mg BID PO 01/23/25 22:00 Cancel Ceftriaxone Sodium 50 ml @ 100 mls/hr DAILY@0900 IV 01/24/25 09:00 01/24/25 09:22 100 MLS/HR Examination Physical Examination General: Patient alert and oriented in person, place and time. Patient following commands. HEENT: Normocephalic, atraumatic, moist mucous membranes Respiratory/pulmonary: Clear lungs bilaterally, vesicular murmurs present in almost all lung albarran, no associated crackles or wheezes. Cardiovascular: Normal heart sounds S1 and S2 with no associated murmurs Abdomen: Abdomen nondistended, there is no pain to palpation in any of the abdominal quadrants, no palpable masses. Extremities: There is significant swelling and erythema extending from the left ankle all the way below the left knee. There is no open wound present in the left lower extremity at this time. Skin: No rashes or pruritus, there is no sacral edema present at this time. Neurological: Intact cranial nerves with no focal neurologic deficits laboratory and microbiology Laboratory Tests 01/24/25 05:40 Test 01/24/25 05:40 Range/Units Serum Glucose 90 74-106 mg/dL Microbiology Date/Time Source Procedure Growth Status 01/22/25 17:11 Leg Left Gram Stain - Final Resulted 01/22/25 17:11 Leg Left Wound Culture - Preliminary Resulted 01/20/25 20:58 Blood Blood Culture - Preliminary NO GROWTH AFTER 72 HOURS OF INCUBATION. Resulted Problem List/Assessment/Plan Problem List/Assessment/Plan Assessment/plan Acute left lower extremity cellulitis due to cat bite Primary hypertension COPD, stable Hypothyroidism Morbid obesity History of anxiety disorder Plan -Stop vancomycin -Continue clindamycin IV and ceftriaxone while in the hospital. -Patient can be Discharge on PO clindamycin 500mg TID and Cefuroxime 500mg BID both for 14 days. -Continue rest of care per primary team Goals of care discussed with patient at bedside, full code Plan discussed with Dr. Sears Plan discussed with: Patient Dietary Evaluation Review Recommendations by RD: Dietary education by RD Comments: 1) Initiate MVI @ 1 tb qd 2) Initiate vitamin C @ 500 mg bid and zinc sulfate @ 220 mg qd for 7 days 3) Refer to outpatient RD for weight management 4) Follow-up with cardiology and pulmonology 5) Continue to monitor I&O, labs, and skin integrity Expected Outcomes/Goals: 1) appetite and labs to improve 2) wound to improve 3) gradual wt loss 4) f/u in 3-5 days ALVIN BATES RESIDENT Jan 24, 2025 14:22
--- NOTE | 2025-01-24 16:23 | DVHPN2 ---
Subjective Patient's left leg cellulitis improved significantly. Wound culture growing coag-negative staph and Enterococcus culture sensitivities pending. Changes from previous H/P or p: No Changes Eyes: No Pain, No Vision change, No Conjunctivae inflammation, No Eyelid inflammation, No Other, No Redness ENT: No Ear pain, No Ear discharge, No Nose pain, No Nose discharge, No Nose congestion, No Mouth pain, No Mouth swelling, No Throat pain, No Throat swelling, No Other Cardiovascular: No Chest Pain, No Palpitations, No Orthopnea, No Paroxysmal Noc. Dyspnea, No Edema, No Lt Headedness, No Other Respiratory: No Cough, No Dry, No Shortness of breath, No SOB with excertion, No Wheezing, No Hemoptysis, No Pleuritic Pain, No Sputum, No Other Gastrointestinal: No Nausea, No Vomiting, No Abdominal Pain, No Diarrhea, No Constipation, No Melena, No Hematochezia, No Other Genitourinary: No Dysuria, No Frequency, No Incontinence, No Hematuria, No Retention, No Other Musculoskeletal: leg pain Skin: Rash, Lesions, Other Objective Vitals Vital Signs Date Time Temp Pulse Resp B/P (MAP) Pulse Ox O2 Delivery O2 Flow Rate FiO2 01/24/25 15:55 75 18 100 01/24/25 15:49 Room Air 01/24/25 15:49 0 21 01/24/25 12:42 97.4 148/68 (94) 97.4 Intake/Output Intake and Output 01/24/25 07:00 Intake Total 2530 ml Balance 2530 ml Intake Oral 2080 ml IV Total 450 ml # Voids 5 # Bowel Movements 1 Exam HEENT pupils are reactive Neck is supple CV is S1-S2 regular rate and rhythm Respiratory diminished breath sounds bases GI positive bowel sound Extremity trace edema of the left leg as well as positive redness and cellulitis. 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 Medications Current Medications Medications Dose Ordered Sig/Francisco Route Start Time Stop Time Status Last Admin Dose Admin Docusate Sodium 100 mg BIDPRN PRN PO 01/20/25 23:45 Acetaminophen 650 mg Q6HP PRN PO 01/20/25 23:45 Acetaminophen/ Hydrocodone Bitart 1 tab Q4HP PRN PO 01/20/25 23:45 01/24/25 08:04 1 TAB Ondansetron HCl 4 mg Q4HP PRN IV 01/20/25 23:45 Morphine Sulfate 2 mg Q4HPRN PRN IV 01/20/25 23:45 Enoxaparin Sodium 40 mg DAILY SC 01/21/25 10:00 01/24/25 09:26 40 MG Nitroglycerin 0.4 mg Q5MINP PRN SL 01/20/25 23:45 Morphine Sulfate 2 mg Q30M PRN IV 01/20/25 23:45 Albuterol 2.5 mg Q4HPRN PRN NEB 01/20/25 23:45 01/24/25 15:49 2.5 MG Ipratropium [place] 0.5 mg Q4HPRN PRN NEB 01/20/25 23:45 01/24/25 15:49 0.5 MG Levothyroxine Sodium 100 mcg QAM@0600 PO 01/21/25 06:00 01/24/25 05:41 100 MCG Pregabalin 100 mg BID PO 01/21/25 10:00 01/24/25 09:24 100 MG Metoprolol Succinate 50 mg DAILY PO 01/21/25 10:00 01/24/25 09:24 50 MG Clindamycin Phosphate 50 ml @ 50 mls/hr Q8HR IV 01/23/25 22:00 01/24/25 14:57 50 MLS/HR Cefuroxime Axetil 500 mg BID PO 01/23/25 22:00 Cancel Ceftriaxone Sodium 50 ml @ 100 mls/hr DAILY@0900 IV 01/24/25 09:00 01/24/25 09:22 100 MLS/HR Laboratory Results Laboratory Tests 01/24/25 05:40 Chemistry Test 01/24/25 05:40 Calcium Level 8.4 mg/dL (8.7-10.4) L Microbiology Microbiology Date/Time Source Procedure Growth Status 01/22/25 17:11 Leg Left Gram Stain - Final Resulted 01/22/25 17:11 Leg Left Wound Culture - Preliminary Resulted 01/20/25 20:58 Blood Blood Culture - Preliminary NO GROWTH AFTER 72 HOURS OF INCUBATION. Resulted Assessment/Plan Assessment/Plan 60-year-old female with a known history of COPD, hypertension, hypothyroidism, who initially presented to the hospital with a left lower extremity worsening cellulitis after cat bite which happened about two three weeks ago. Patient was previously seen in the ER on January 11 and but left against medical advice. 1. Left lower extremity cat bite cellulitis 2. Mild leukocytosis 3. COPD 4. Hypothyroidism 5. Hypertension 6. Anxiety disorder 7. Morbid obesity classIII -wound Gram stain culture is growing 2 bacteria, coag-negative staph, Enterococcus culture sensory pending. -broad-spectrum IV antibiotics, infectious disease consultation, discharge plan in next 24-48 hours. Plan discussed with: Patient Date of Service: Jan 24, 2025 Billing Provider: RUI ADDISON MD Common Visit Codes: NOT BILLABLE RUI ADDISON MD Jan 24, 2025 16:22
[2025-01-25] VITALS (12 sets, daily range): BP systolic 124–137; BP diastolic 59–87; PULSE 59–76; RESP 17–20; TEMP 97.2–98.6; O2SAT 91–98
[2025-01-25 06:03] LABS: Hemoglobin 10.2 g/dL (12.2-16.2); Nucleated Red Blood Cells % 0.0 %
[2025-01-25 06:06] LABS: Hematocrit 29.4 % (36.0-46.0); Mean Corpuscular Hemoglobin 28.3 pg (28.0-32.0); Mean Corpuscular Volume 82.1 fL (80.0-100.0)
[2025-01-25 06:07] LABS: Anion Gap 10 (5-15); Carbon Dioxide 27 mmol/L (20-31); Chloride 100 mmol/L (98-107); Potassium 3.9 mmol/L (3.5-5.1); Sodium 137 mmol/L (136-145)
[2025-01-25 06:10] LABS: Calcium 8.3 mg/dL (8.7-10.4)
[2025-01-25 06:13] LABS: BUN/Creatinine Ratio 12.5 (10.0-20.0); Glucose 98 mg/dL (74-106)
[2025-01-25 06:35] LABS: Blood Urea Nitrogen 9 mg/dL (9-23)
[2025-01-25] MEDS ORDERED: HYDR-4902 PO (13:30)
[2025-01-25] MEDS ORDERED: AUG875T PO (13:30)
[2025-01-25] MEDS ORDERED: NALO4SPR2 (13:33)
--- NOTE | 2025-01-25 13:39 | DVHDS2 ---
Discharge Summary Date of Admission Jan 20, 2025 at 23:35 Date of Discharge: Jan 25, 2025 Labs/Diagnostic Data: Laboratory Results Test 01/25/25 05:34 01/22/25 10:29 01/21/25 06:06 01/20/25 20:58 White Blood Count 7.2 10^3/uL (4.4-10.8) Red Blood Count 3.58 10^6/uL (4.0-5.20) Hemoglobin 10.2 g/dL (12.2-16.2) Hematocrit 29.4 % (36.0-46.0) Mean Corpuscular Volume 82.1 fL (80.0-100.0) Mean Corpuscular Hemoglobin 28.3 pg (28.0-32.0) Mean Corpuscular Hemoglobin Concent 34.5 g/dL (32.0-36.0) Red Cell Distribution Width 14.9 % (11.8-14.3) Platelet Count 462 10^3/uL (140-450) Mean Platelet Volume 7.7 fL (6.9-10.8) Neutrophils (%) (Auto) 73.6 % (37.0-80.0) Lymphocytes (%) (Auto) 16.2 % (10.0-50.0) Monocytes (%) (Auto) 7.5 % (0.0-12.0) Eosinophils (%) (Auto) 1.2 % (0.0-7.0) Basophils (%) (Auto) 1.5 % (0.0-2.0) Neutrophils # (Auto) 5.3 10 ^3/uL (1.6-8.6) Lymphocytes # (Auto) 1.2 10 ^3/uL (0.4-5.4) Monocytes # (Auto) 0.5 10 ^3/uL (0-1.3) Eosinophils # (Auto) 0.1 10 ^3/uL (0-0.8) Basophils # (Auto) 0.1 10 ^3/uL (0-0.2) Nucleated Red Blood Cells 0.0 % Sodium Level 137 mmol/L (136-145) Potassium Level 3.9 mmol/L (3.5-5.1) Chloride Level 100 mmol/L (98-107) Carbon Dioxide Level 27 mmol/L (20-31) Anion Gap 10 (5-15) Blood Urea Nitrogen 9 mg/dL (9-23) Creatinine 0.72 mg/dL (0.550-1.02) Glomerular Filtration Rate Calc 94 mL/min (>90) BUN/Creatinine Ratio 12.5 (10.0-20.0) Serum Glucose 98 mg/dL (74-106) Calcium Level 8.3 mg/dL (8.7-10.4) Vancomycin Level Trough 9.2 ug/mL (5-10) Hepatitis B Surface Antigen Negative (Negative) Hepatitis C Antibody Negative (Negative) Erythrocyte Sedimentation Rate 50 mm/hr (0-20) C-Reactive Protein High Sensitivity 7.77 mg/dL (<1.0) B-Type Natriuretic Peptide 132.76 pg/mL (0-100) Other Laboratory Tests 01/25/25 05:34 Brief Hx & Hospital Course: 60-year-old female with a known history of COPD, hypertension, hypothyroidism, who initially presented to the hospital with a left lower extremity worsening cellulitis after cat bite which happened about two three weeks ago. Patient was previously seen in the ER on January 11 and but left against medical advice. Patient was found to have left lower extremity cellulitis with a cat bite cellulitis. Patient was given IV antibiotics including ceftriaxone and clindamycin. Patient was also provided left leg wound care. Patient's wound culture shows coag-negative staph and Enterococcus. Infectious Disease specialist has recommended Augmentin for fell more days. Patient is being discharged under stable condition. Patient is requesting [place] for pain medication also patient will be provider left leg foot wound care for home. Condition at Discharge: Stable Final Diagnosis/Problems List 60-year-old female with a known history of COPD, hypertension, hypothyroidism, who initially presented to the hospital with a left lower extremity worsening cellulitis after cat bite which happened about two three weeks ago. Patient was previously seen in the ER on January 11 and but left against medical advice. 1. Left lower extremity cat bite cellulitis 2. Mild leukocytosis 3. COPD 4. Hypothyroidism 5. Hypertension 6. Anxiety disorder 7. Morbid obesity classIII Discharge Disposition: Home with [facility] Discharge Will this Physician continue t: No Discharge Instruct/Medications Diet: Cardiac 2g Na,low cholest Activity: See Comment Activity comment: No driving, no playing on machinery, no signing legal documents while on narcotics. Follow Up/Referral: Follow up with the PCP in one week Follow up with Dr. Gianfranco Sears in 1-2 weeks. Medications: Antibiotics and narcotic med as prescribed. New Medications: Amoxicillin & Pot Clavulanate (Augmentin Tablet) 875 Mg Tb 875 MG PO BID for 12 Days, #24 TAB Hydrocodone-Acetaminophen (Hydrocodone Bitartrate/AC 5-325 mg) 1 Tab Tab 1 TAB PO Q8HP PRN, #14 TAB Naloxone HCl (Narcan) 4 Mg/0.1 Ml Spr 4 MG NA SENIOR PLANNER, #2 SPRAY Continued Medications: Duloxetine HCl (Duloxetine HCl) 60 Mg Cap 60 MG PO DAILY, CAP Furosemide (Furosemide) 20 Mg Tab 20 MG PO DAILY for 30 Days, MG Levothyroxine Sodium (Levothyroxine Sodium) 100 Mcg Tab 100 MCG PO QAM for 30 Days, MCG Liothyronine Sodium (Liothyronine Sodium) 25 Mcg Tab 25 MCG PO DAILY, TAB Lisinopril (Lisinopril) 20 Mg Tab 20 MG PO DAILY for 30 Days, MG Metoprolol Succinate (Metoprolol Succinate Er) 50 Mg Tab 50 MG PO DAILY for 30 Days, MG Potassium Chloride (Potassium Chloride Cr) 10 Meq Tb 20 MEQ PO DAILY, TAB Pregabalin (Lyrica) 200 Mg Cap 2 CAP PO DAILY, #60 CAP Verapamil Hcl (Verapamil Hcl Er) 180 Mg Tab 180 MG PO, TAB Discontinued Medications: Lisinopril (Lisinopril) 20 Mg Tab 20 MG PO DAILY for 30 Days, MG Scheduled Amoxicillin & Pot Clavulanate (Augmentin Tablet), 875 MG PO BID Duloxetine HCl (Duloxetine HCl), 60 MG PO DAILY, (Reported) Furosemide (Furosemide), 20 MG PO DAILY, (Reported) Levothyroxine Sodium (Levothyroxine Sodium), 100 MCG PO QAM, (Reported) Liothyronine Sodium (Liothyronine Sodium), 25 MCG PO DAILY, (Reported) Lisinopril (Lisinopril), 20 MG PO DAILY, (Reported) Lisinopril (Lisinopril), 20 MG PO DAILY, (Reported) Metoprolol Succinate (Metoprolol Succinate Er), 50 MG PO DAILY, (Reported) Naloxone HCl (Narcan), 4 MG NA SENIOR PLANNER Potassium Chloride (Potassium Chloride Cr), 20 MEQ PO DAILY, (Reported) Pregabalin (Lyrica), 2 CAP PO DAILY, (Reported) Scheduled PRN Hydrocodone-Acetaminophen (Hydrocodone Bitartrate/AC 5-325 mg), 1 TAB PO Q8HP PRN Miscellaneous Medications Verapamil Hcl (Verapamil Hcl Er), 180 MG PO, (Reported) Discharge Statement: "Patient was advised to return to the ER or call 911 if any headaches, dizziness, shortness of breath, chest pain, abdominal pain, bleeding, fevers, or worsening of medical condition. Patient was counseled about treatment plan, medications, possible side effects, patientverbalized understanding. All questions were answered to the best of my ability. This discharge took greater then 30 minutes in planning, reviewing documentation, counseling the patient, and discussing with other team members." ASSESSMENT ASSESSMENT Assessment 60-year-old female with a known history of COPD, hypertension, hypothyroidism, who initially presented to the hospital with a left lower extremity worsening cellulitis after cat bite which happened about two three weeks ago. Patient was previously seen in the ER on January 11 and but left against medical advice. 1. Left lower extremity cat bite cellulitis 2. Mild leukocytosis 3. COPD 4. Hypothyroidism 5. Hypertension 6. Anxiety disorder 7. Morbid obesity classIII Date of Service: Jan 25, 2025 Billing Provider: RUI ADDISON MD Common Visit Codes: NOT BILLABLE RUI ADDISON MD Jan 25, 2025 13:39
[2025-01-25] MEDS ORDERED: CEFD300C2 PO (14:31)
[2025-01-25] MEDS ORDERED: CLIN-188 PO (14:39)
--- NOTE | 2025-01-26 09:51 | DVHPN2 ---
Consult Progress Note Objective vital signs Vital Sign Date Time Temp Pulse Resp B/P (MAP) Pulse Ox O2 Delivery O2 Flow Rate FiO2 01/25/25 16:58 73 20 135/83 (100) 96 01/25/25 15:54 98.6 01/25/25 10:00 Room Air* 0 21 Total Intake and Output 01/25/25 01/25/25 01/26/25 15:00 23:00 07:00 Intake Total 1000 ml Output Total 1000 ml Balance 0 ml medications Current Medications Medications Dose Ordered Sig/Francisco Route Start Time Stop Time Status Last Admin Dose Admin Cefuroxime Axetil 500 mg BID PO 01/23/25 22:00 Cancel laboratory and microbiology Laboratory Tests 01/25/25 05:34 Test 01/25/25 05:34 Range/Units Serum Glucose 98 74-106 mg/dL Dietary Evaluation Review Recommendations by RD: Dietary education by RD Comments: 1) Initiate MVI @ 1 tb qd 2) Initiate vitamin C @ 500 mg bid and zinc sulfate @ 220 mg qd for 7 days 3) Refer to outpatient RD for weight management 4) Follow-up with cardiology and pulmonology 5) Continue to monitor I&O, labs, and skin integrity Expected Outcomes/Goals: 1) appetite and labs to improve 2) wound to improve 3) gradual wt loss 4) f/u in 3-5 days JOHN LYNN MD Jan 26, 2025 09:51
== END 2025-01-25 17:37 | disposition home health service (06) | DRG 602 ==
LOC: ER 18:45 → OVERFLOW 23:35 → TELE-EAST 01-21 03:23
PROVIDERS: ADMIT Nurse Practitioner Family; ATTEND Nurse Practitioner Family
DX: L03.116 Cellulitis of left lower limb (principal); N17.0 Acute kidney failure with tubular necrosis; Z68.42 Body mass index [BMI] 45.0-49.9, adult; J44.9 Chronic obstructive pulmonary disease, unspecified; S81.852A Open bite, left lower leg, initial encounter; E66.813 Obesity, class 3; F41.9 Anxiety disorder, unspecified; I10 Essential (primary) hypertension; Z82.5 Family history of asthma and other chronic lower respiratory diseases; Z80.0 Family history of malignant neoplasm of digestive organs; Z88.0 Allergy status to penicillin; W55.01XA Bitten by cat, initial encounter; Y93.89 Activity, other specified; Y92.89 Other specified places as the place of occurrence of the external cause; Y99.8 Other external cause status
CPT/HCPCS: 36415; 73700; 80048; 80202; 83880; 85025; 85652; 86141; 86803; 87040; 87077; 87081; 87186; 87205; 87340; 93970; 94640; 96365; 96367; G0378; J3490